=== PATIENT | male | born 1955 | race Caucasian/White ===

== ENCOUNTER 2018-06-08 10:46 | Inpatient (IN) | payer MEDICARE, OTHER ==
[~2018-06-08] VITALS: Ht 185.4 cm; Wt 93.0 kg
--- NOTE | ~2018-06-08 | CON ---
[facility] [address] [place] [address] CONSULTATION Name: KALYN SHAH Room: [address] IN M.R.#: [id number] Admission: 06/08/18 Attend Phys: Alberto Mcduffie MD Discharge: 06/13/18 Date of : 53 Report #: [id number] THIS REPORT FOR: //name// CC: Alberto Rodrigues DATE OF SERVICE: 06/09/2018 REFERRING PHYSICIAN: Alberto Mcduffie MD REASON FOR CONSULTATION: Abdominal pain and dysphagia. IMPRESSION: 1. Dysphagia with history of Rome's esophagus with his last examination being done over 5 years ago. 2. Iron deficiency anemia of uncertain etiology with the patient taking iron supplement chronically and craving ice. 3. Chronic constipation exacerbated by chronic narcotics. 4. Dilated intra and extrahepatic ducts with gallbladder in situ -- etiology and significance is unclear. 5. Chronic methadone and narcotic use. 6. Pneumonia versus mass. 7. Prostate cancer. 8. Anxiety and depression. RECOMMENDATIONS: 1. We will have the patient to have a low-residue diet in anticipation of doing colonoscopy in 2 days' time as the patient will need a 2-day prep. 2. We will proceed with upper endoscopy tomorrow and attempt colonoscopy on . 3. We will check labs to assess his continued need for iron replacement at this time. 4. We will continue the patient's home regimen of stimulant laxatives as he cannot afford high-priced laxatives such as Movantik, Linzess or Amitiza. 5. The patient will need eventually endoscopic ultrasound with Dr. Morris to evaluate his dilated intra and extrahepatic ducts. This needs to be done at [facility]. I have discussed the plans with the patient as well as and they are agreeable to the same. HISTORY OF PRESENT ILLNESS: The patient is a pleasant, but [id number] white male who presented to the Emergency Room yesterday with complaints of feeling as if food is getting stuck in his throat. He was having issues with swallowing and does have problem with chronic reflux. He is on medications for the same. He has not had any problem with [place] [address] CONSULTATION Name: KALYN SHAH Room: [address]#: [id number] Admission: 06/08/18 Attend Phys: Alberto Mcduffie MD Discharge: 06/13/18 Date of : 53 Report #: [id number] has had no nausea, vomiting, hematemesis or melena. He has tendency towards chronic constipation, for which he has tried a number of different laxatives and has a bowel regimen with the MiraLax and stool softeners that worked fairly well for him. He states he has undergone endoscopic studies of his upper GI tract within the last 5 years, but neither he nor his can remember what was done. He is admitted to the hospital for further evaluation and treatment. ALLERGIES: NONSTEROIDALS. He had previous GI BLEEDING related to same. MEDICATIONS: At home include Lupron, Casodex, albuterol, amlodipine, Qvar, fluoxetine, methadone, methocarbamol, Percocet, Florinef and esomeprazole. PAST MEDICAL AND SURGICAL HISTORY: Remarkable for metastatic prostate cancer, COPD, chronic pain syndrome, anxiety, depression. He had problems with chronic back pain with opioid dependence. He has had previous knee replacement, history of ulcer disease, prostatectomy and has history of orthostatic hypotension. SOCIAL HISTORY: The patient does not smoke or drink. FAMILY HISTORY: Negative. PHYSICAL EXAMINATION: GENERAL: Revealed ill-appearing 63-year-old gentleman who is awake and alert. CARDIOPULMONARY: Revealed diminished breath sounds. ABDOMEN: Soft and nondistended. No rebound or guarding. LABORATORY DATA TESTING: From admission revealed a white count 11.2; hemoglobin 10.4; platelet count of 256,000; MCV is 88.2 and RDW is 15.0. Urine drug screen is positive for opiates and methadone. Sodium 137, potassium 4.7, chloride 102, bicarbonate is 30, BUN 23 and creatinine 1.2. Total bilirubin 0.8, alkaline phosphatase is 70, AST 46, ALT 60. His albumin is 3.5. His INR is 1.0. CT scan of the abdomen and pelvis performed on 06/08/2018 revealed diffuse enlargement of the entire colon without evidence for obstruction. He has dilated intra and extrahepatic ducts all the way down to the papilla. There is no focal mass noted within the pancreas. DISCUSSION: At the present time, the patient has had problem with iron deficiency anemia, dysphagia, etc. We will proceed with upper endoscopy tomorrow and then bowel preparation over the next 2 days in anticipation of a colonoscopy in 2 [place] [address] CONSULTATION Name: KALYN SHAH J Room: [address] IN .R.#: [id number] Admission: 06/08/18 Attend Phys: Alberto Mcduffie MD Discharge: 06/13/18 Date of : 53 Report #: [id number] I have discussed the plans with the patient as well as and they are agreeable. By: [id number] Grey DO /rula
[~2018-06-08 10:46] MED LIST: AMITRIPTYLINE; DAZIDOX10 MG; ENDOCET; FENTANYL 1100 MCG/HR TP; FENTANYL PATCH75 MCG; FLORINEF ACETA0.1 MG PO; FLUOXETINE HCL20 M1 PO; KEFLEX500 MG PO; LOVENOX; METHADONE HCL 110 M1 PO; NEXIUM; NEXIUM40 MG PO; NORVASC5 MG PO; OPANA ER40 MG PO; PERCOCET 2.5-31 EACH PO; PROZAC; QVAR HFA 440 MCG/UN1 INH; QVAR8.7 G1 INH; ROBAXIN 750 MG750 M1 PO; VENTOLIN HFA 1818 GM INH; XANAX 0.25 MG0.25 MG PO; [UNRECOGNIZED DRUG - OTHER]
[2018-06-08 10:50] VITALS: BP 173/91
[2018-06-08] MEDS ORDERED: LUPRON DEPOT45 MG IM (10:58)
[2018-06-08] MEDS ORDERED: CASODEX 50 MG T50 MG PO (10:58)
[2018-06-08 11:22] LABS: HEMOGLOBIN 10.4 gm/dL (14.0-18.0); MCH 28.6 pg (26.0-34.0); MCHC 32.4 g/dL (28.0-37.0); MCV 88.2 fL (80.0-100.0); MPV 8.4 fl. (7.2-11.1); NUCLEATED RBCS 0 /100WBC; PLATELET COUNT* 256 thou/uL (150-400); RBC 3.63 mil/uL (4.50-6.00); WBC 11.2 thou/uL (4.0-11.0)
[2018-06-08 11:36] LABS: ANION GAP 5 mmol/L (7-16); BUN 23 mg/dL (7-18); CALCIUM 8.6 mg/dL (8.5-10.1); CHLORIDE 102 mmol/L (98-107); CO2 30 mmol/L (21-32); CREATININE 1.2 mg/dL (0.6-1.3); GLUCOSE 98 mg/dL (70-99); POTASSIUM 4.7 mmol/L (3.5-5.1); SODIUM 137 mmol/L (136-145)
[2018-06-08 11:40] LABS: ALBUMIN 3.5 g/dL (3.4-5.0); ALKALINE PHOSPHATASE 70 U/L (46-116); LIPASE 67 U/L (73-393); NT-PRO BRAIN NAT PEPTIDE 472 pg/mL (<300); SGOT 46 U/L (15-37); SGPT 60 U/L (30-65); TOTAL BILIRUBIN 0.3 mg/dL (<0.1-1.0); TOTAL PROTEIN 6.8 g/dL (6.4-8.2); TROPONIN-I LEVEL <0.06 ng/mL (<0.06)
[2018-06-08 11:47] LABS: APTT 28.5 Seconds (25.0-31.3); PROTIME 10.5 Seconds (9.20-11.50)
[2018-06-08 13:17] LABS: ABSOLUTE EOSINOPHILS 0.1 thou/uL (0.0-0.7); ABSOLUTE LYMPHOCYTES 0.7 thou/uL (0.8-5.3); ABSOLUTE MONOCYTES 0.6 thou/uL (0.0-1.2); ABSOLUTE NEUTROPHILS 9.9 thou/uL (1.6-8.1); PLATELET ESTIMATE ADEQUATE
[2018-06-08 14:41] LABS: URINE BILIRUBIN NEGATIVE (Negative); URINE BLOOD NEGATIVE (Negative); URINE CLARITY CLEAR; URINE COLOR YELLOW; URINE GLUCOSE-RANDOM NEGATIVE (Negative); URINE KETONES NEGATIVE (Negative); URINE LEUKOCYTES-REFLEX NEGATIVE (Negative); URINE NITRITE-REFLEX NEGATIVE (Negative); URINE PROTEIN NEGATIVE (Negative); URINE UROBILINOGEN 0.2 E.U./dl (0.2-1.0)
--- NOTE | 2018-06-08 14:41 | NUR ---
PER PT, "RADIOLOGY D/C PREVIOUS IV AND STARTED A NEW IV" IV WAS PLACED IN LEFT AC
[2018-06-08 14:49] LABS: AMP/METHAMP Negative (Negative); BARBITURATES Negative (Negative); BENZODIAZEPINES Negative (Negative); COCAINE Negative (Negative); METHADONE POSITIVE (Negative); OPIATES POSITIVE (Negative); PCP Negative (Negative); THC Negative (Negative)
[2018-06-08 15:22] VITALS: BP 181/131
--- NOTE | 2018-06-08 15:43 | EKG ---
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
[2018-06-08 16:00] VITALS: BP 179/79
--- NOTE | 2018-06-08 17:53 | NUR ---
ASSESSMENT COMPLETE. PT ADMITTED WITH ASPIRATION PNEUMONIA, OGILVIES SYNDROME, AND DILATED COM. PT ALERT AND ORIENTED X4, IMPULSIVE AND RESTLESS. PT IS FALL RISK, BED ALARM ON. PT EDUCATED ON FALL RISK, SOCKS AND ARMBAND ON. PT IS ON CLEAR LIQ DIET AT THIS TIME. TAKES MEDS WITHOUT DIFFICULTY. DENIES N/V. IV IN RIGHT FOREARM, SALINE LOCKED. PT IS ON ROOM AIR WITH ADEQUATE SATS. IV ZOSYN GIVEN ORDERED. GI CONSULTED. SEE ASSESSMENT AND VITALS FOR OTHER DETAILS. CALL LIGHT WITHIN REACH, WILL CONTINUE PLAN OF CARE
[2018-06-09] VITALS: BP 146/61
[2018-06-09 03:44] LABS: HEMATOCRIT 31.9 % (42.0-52.0); HEMOGLOBIN 10.5 gm/dL (14.0-18.0); MCHC 32.9 g/dL (28.0-37.0); MPV 8.4 fl. (7.2-11.1); RBC 3.63 mil/uL (4.50-6.00); RDW-CV 14.5 % (10.5-14.5); WBC 7.1 thou/uL (4.0-11.0)
--- NOTE | 2018-06-09 04:24 | NUR ---
PATIENT SLEPT WELL DURING THE NIGHT. PT UP WITH STANDBY TO BATHROOM. PT USES CALL LIGHT APPROPRIATELY TO MAKE HIS NEEDS KNOWN. LT IV INFILTRATED AND HAND IS SWOLLEN. IV REMOVED AND PT ENCOURAGED TO ELEVATE ON A PILLOW BUT REFUSED. NEW IV STARTED IN LT FOREARM. FLUIDS/ANTIBIOTICS INFUSING PER DR ORDER. FREQUENTLY USED ITEMS AND CALL LIGHT WITHIN REACH. SIDERAILS UPX2 AND BED ALARM ON. WILL CONTINUE TO MONITOR.
[2018-06-09 04:25] LABS: ALBUMIN 3.3 g/dL (3.4-5.0); CALCIUM 8.6 mg/dL (8.5-10.1); MAGNESIUM 3.3 mg/dL (1.8-2.4); POTASSIUM 5.5 mmol/L (3.5-5.1); TOTAL BILIRUBIN 0.3 mg/dL (<0.1-1.0); TOTAL PROTEIN 6.1 g/dL (6.4-8.2)
[2018-06-09 08:00] VITALS: BP 165/63
--- NOTE | 2018-06-09 13:55 | NUR ---
CM ASSESSMENT: VISITED WITH PT IN ROOM. PT STATES HE LIVES AT HOME WITH HIS . HAS NO DME NEEDS. NO HH NEEDS. CM WILL FOLLOW IF NEEDED
[2018-06-09 16:00] VITALS: BP 149/77
--- NOTE | 2018-06-09 16:22 | NUR ---
ALERT AND ORIENTED X4. UP STAND BY ASSIST IN ROOM. IV IS PATENT AND INFUSING. PAIN BEING MANAGED WITH PO PAIN MEDICATION. DENIES NAUSEA. TOLERATING DIET. VSS ON ROOM AIR. HOURLY ROUNDS HAVE BEEN MAINTAINED THROUGHOUT SHIFT. CALL LIGHT IS WITHIN REACH. NURSING WILL CONTINUE TO MONITOR.
[2018-06-09 21:53] VITALS: BP 190/109
[2018-06-10 04:50] LABS: ABSOLUTE EOSINOPHILS 0.3 thou/uL (0.0-0.7); ABSOLUTE MONOCYTES 0.5 thou/uL (0.0-1.2); ABSOLUTE NEUTROPHILS 5.5 thou/uL (1.6-8.1); BASOPHILS 0.5 %; EOSINOPHILS 4.5 %; HEMATOCRIT 32.2 % (42.0-52.0); HEMOGLOBIN 10.9 gm/dL (14.0-18.0); LYMPHOCYTES 13.7 %; MCH 29.6 pg (26.0-34.0); MCV 87.1 fL (80.0-100.0); MONOCYTES 6.6 %; MPV 8.9 fl. (7.2-11.1); NUCLEATED RBCS 0 /100WBC; PLATELET COUNT* 235 thou/uL (150-400); POLYS 74.7 %; RBC 3.69 mil/uL (4.50-6.00); RDW-CV 14.2 % (10.5-14.5); WBC 7.3 thou/uL (4.0-11.0)
[2018-06-10 04:57] LABS: ALBUMIN 3.2 g/dL (3.4-5.0); CALCIUM 8.3 mg/dL (8.5-10.1); POTASSIUM 4.6 mmol/L (3.5-5.1); TOTAL BILIRUBIN 0.3 mg/dL (<0.1-1.0); TOTAL PROTEIN 6.6 g/dL (6.4-8.2)
[2018-06-10 06:29] LABS: ESR (SEDRATE) 35 mm/hr (0-20)
[2018-06-10 08:02] VITALS: BP 186/92
[2018-06-10 08:23] VITALS: BP 168/90; BP 186/92
[2018-06-10 16:07] LABS: HEPATITIS B SURFACE AG Negative (Negative)
[2018-06-10 16:46] VITALS: BP 113/83
--- NOTE | 2018-06-10 18:23 | NUR ---
ASSESSMENT COMPLETE. PT ALERT AND ORIENTED X4. DENIES NEED FOR PRN PAIN MEDICATION. EGD THIS AM WENT WELL. PT CLEAR LIQUIDS FOR LUNCH AND DINNER. STARTED MIRALAX/DULCOLAX BOWEL PREP FOR COLONOSCOPY TOMORROW. CONSENTS SIGNED IN CHART. PT IS ON ROOM AIR WITH [place] SATS. HRR, PULSES 2/2, NO EDEMA NOTED. PT HAS IV SALINE LOCKED, ZOSYN CURRENTLY INFUSING. PT TAKES MEDICATIONS WITHOUT DIFFICULTY. PT IS FALL RISK, BED ALARM ON. UP STANDBY ASSIST. SEE ASSESSMENT AND VITALS FOR OTHER DETAILS. CALL LIGHT WITHIN REACH, WILL CONTINUE PLAN OF CARE
[2018-06-11 00:32] VITALS: BP 197/118
[2018-06-11 03:54] VITALS: BP 187/102
[2018-06-11 04:57] LABS: ABSOLUTE EOSINOPHILS 0.3 thou/uL (0.0-0.7); ABSOLUTE MONOCYTES 0.5 thou/uL (0.0-1.2); ABSOLUTE NEUTROPHILS 4.5 thou/uL (1.6-8.1); BASOPHILS 0.4 %; EOSINOPHILS 4.2 %; HEMATOCRIT 32.1 % (42.0-52.0); HEMOGLOBIN 10.7 gm/dL (14.0-18.0); LYMPHOCYTES 16.2 %; MCH 28.8 pg (26.0-34.0); MCHC 33.4 g/dL (28.0-37.0); MCV 86.1 fL (80.0-100.0); MONOCYTES 7.6 %; MPV 8.6 fl. (7.2-11.1); NUCLEATED RBCS 0 /100WBC; PLATELET COUNT* 270 thou/uL (150-400); POLYS 71.6 %; RBC 3.73 mil/uL (4.50-6.00); WBC 6.2 thou/uL (4.0-11.0)
[2018-06-11 05:00] LABS: CALCIUM 8.6 mg/dL (8.5-10.1); CREATININE 1.1 mg/dL (0.6-1.3); POTASSIUM 4.7 mmol/L (3.5-5.1)
--- NOTE | 2018-06-11 06:51 | NUR ---
PATIENT WAS AWAKE MOST OF THE NIGHT DUE TO BOWEL PREP. PT UP TO BSC. PT WITH GREENISH/CLEAR STOOL. PT WITH ANTIBIOTICS INFUSING PER DR ORDER. PT DENIES PAIN. FREQUENTLY USED ITEMS AND CALL LIGHT WITHIN REACH. WILL CONTINUE TO MONITOR.
[2018-06-11 08:40] VITALS: BP 141/93
[2018-06-11 09:23] VITALS: BP 165/88; BP 168/90
[2018-06-11 16:00] VITALS: BP 164/95
--- NOTE | 2018-06-11 17:09 | PATH ---
[address] [address] PATHOLOGY RPT PROCEDURE Name: KALYN ACEVES Room: [address] IN M.R.#: [id number] Admission: 06/08/18 Date of : 53 Discharge: Report #: [id number] Path Case #: [id number] [facility] Accession Number: [id number] . 01 Material submitted: . ESOPHAGEAL BIOPSY RULE OUT BARRETTS . 01 Clinical history: . None provided . 02 Diagnosis: Esophageal biopsy: - Benign esophageal and gastric/columnar types mucosa with moderate chronic and active inflammation compatible with reflux and with goblet cells typical of Rome's metaplasia, negative for granulomas and dysplasia. (ABDIAZIZ/db; 06/11/2018) LBQ/06/11/2018 . 02 Electronically signed: . Porter Gao MD, Pathologist NPI- [id number] . 01 Gross description: . Received in formalin labeled "Kalyn Aceves, esophageal BX, rule out Rome's," is a single segment of davidson soft tissue measuring 0.5 cm in maximum dimension. The specimen is entirely submitted in cassette A1. (TSD; 06/10/2018) TOB/TOB . 02 Pathologist provided ICD-10: K22.70 . 02 CPT . 834282 Specimen Comment: A courtesy copy of this report has been sent to Specimen Comment: [phone], , . Specimen Comment: Report sent to ,DR NAM / DR PAULINO Performed at: [address], [place], [place] [id number] MD Jh Alcala MD Phone: [phone] Performed at: [address] [facility] [address], [place], [place] [id number] MD Porter Gao MD Phone: [phone]
--- NOTE | 2018-06-11 17:58 | NUR ---
PATIENT IS ALERT AND ORIENTED TODAY. WENT FOR COLONOSCOPY BUT WAS UNABLE TO DO BECAUSE OF NOT BEING CLEAR ENOUGH. VITAL SIGNS HAVE BEEN STABLE ON ROOM AIR. SOME PAIN THAT IS CHRONIC THAT IS CONTROLLED WITH ORAL MEDICATIONS. CALL [facility] IS IN REACH, WILL CONTINUE TO MONITOR.
[2018-06-11 20:40] VITALS: BP 157/93
--- NOTE | 2018-06-12 05:21 | NUR ---
PT SLEPT MOST OF SHIFT. ASSESSMENT DOCUMENTED. MEDS GIVEN PER E-MAR. IV PATENT. PAIN MEDS GIVEN PER E-MAR WITH RELIEF. PT COMPLETED GOLYTELY DRINK. BISCODYL WILL BE GIVEN THIS SHIFT. STOOLS ARE LIQUID AND LIGHT GREEN WITH SEDIMENT. WILL CONTINUE WITH PLAN OF CARE.
[2018-06-12 08:30] VITALS: BP 180/92
--- NOTE | 2018-06-12 10:24 | NUR ---
PATIENT TAKEN FOR COLONOSCOPY, CONSENT SIGNED. PATIENT'S DOSE OF ZOSYN GIVEN TO TEACHER MUSIC TO ADMINISTER IN PACU. ACCOMPANIED PATIENT.
[2018-06-12 15:52] VITALS: BP 140/78
--- NOTE | 2018-06-12 17:52 | NUR ---
PATIENT HAS BEEN A/O X 4 THIS SHIFT. PATIENT TAKEN FOR COLONOSCOPY THIS MORNING. CONTINUES ON SCHEDULED METHADONE. TO START ON MIRALAX THIS EVENING. UP AD TAMMY IN ROOM. NICHOL LEVINE'D, TO START ON ORAL ANTIBIOTICS. POSSIBLE DC IN AM. FAMILY AT BEDSIDE. HOURLY ROUNDING COMPLETED. CALL LIGHT WITHIN REACH. WILL CONTINUE WITH PLAN OF CARE.
[2018-06-12 20:20] VITALS: BP 143/81
[2018-06-13 00:13] VITALS: BP 154/87
[2018-06-13 05:00] LABS: ABSOLUTE EOSINOPHILS 0.2 thou/uL (0.0-0.7); ABSOLUTE LYMPHOCYTES 1.4 thou/uL (0.8-5.3); ABSOLUTE MONOCYTES 0.5 thou/uL (0.0-1.2); ABSOLUTE NEUTROPHILS 6.3 thou/uL (1.6-8.1); BASOPHILS 0.3 %; EOSINOPHILS 2.7 %; HEMOGLOBIN 11.7 gm/dL (14.0-18.0); LYMPHOCYTES 16.4 %; MCHC 33.6 g/dL (28.0-37.0); MCV 86.5 fL (80.0-100.0); MONOCYTES 5.6 %; MPV 8.8 fl. (7.2-11.1); NUCLEATED RBCS 0 /100WBC; PLATELET COUNT* 267 thou/uL (150-400); RBC 4.04 mil/uL (4.50-6.00); RDW-CV 13.9 % (10.5-14.5); WBC 8.4 thou/uL (4.0-11.0)
[2018-06-13 05:47] LABS: CALCIUM 8.5 mg/dL (8.5-10.1); CREATININE 0.8 mg/dL (0.6-1.3); POTASSIUM 4.9 mmol/L (3.5-5.1)
--- NOTE | 2018-06-13 05:47 | NUR ---
PT SLEPT MOST OF SHIFT. ASSESSMENT DOCUMENTED. MEDS GIVEN PER E-MAR. IV PATENT. PAIN MEDS GIVEN PER E-MAR WITH RELIEF. PT TOLERATING DIET. WILL CONTINUE WITH PLAN OF CARE.
[2018-06-13 07:50] VITALS: BP 130/58
[2018-06-13] MEDS ORDERED: AUGMENTIN 875-1 EACH PO ×2 (09:22→12:50)
[2018-06-13] MEDS ORDERED: UNICOMPLEX M TA1 TA1 PO (12:51)
[2018-06-13] MEDS ORDERED: MIRALAX17 GM PO (12:58)
[2018-06-13 13:59] VITALS: BP 130/58
--- NOTE | 2018-06-13 15:00 | NUR ---
ASSESSMENT COMPLETE. PT ALERT AND ORIENTED X4. PT STARTED ON PO ABX. DENIES PAIN AND N/V. PT DISCHARGED TO HOME. PRESCRIPTIONS GIVEN AND PAPERWORK SIGNED. PT VERBALIZES UNDERSTANDING OF DISCHARGE INSTRUCTIONS. IV DISCHARGED WITHOUT DIFFICULTIES. PT LEFT VIA WHEELCHAIR WITH SPOUSE AT 1430.
[2018-06-13 15:02] VITALS: BP 130/58
== END 2018-06-13 14:30 | disposition home or self-care (01) | DRG 871 ==
LOC: M.ERS 10:46 → M.TBA-ER 14:25 → M.3W 14:25
PROVIDERS: Family Medicine; Internal Medicine Gastroenterology; Nurse Practitioner Family; ADMIT Internal Medicine
PROC: 0DB98ZX Excision of Duodenum, Via Natural or Artificial Opening Endoscopic, Diagnostic (ICD-10-PCS; principal; 2018-06-10)
PROC: 0D748ZZ Dilation of Esophagogastric Junction, Via Natural or Artificial Opening Endoscopic (ICD-10-PCS; principal; 2018-06-10)
PROC: 0W3P8ZZ Control Bleeding in Gastrointestinal Tract, Via Natural or Artificial Opening Endoscopic (ICD-10-PCS; principal; 2018-06-10)
PROC: 0DJD8ZZ Inspection of Lower Intestinal Tract, Via Natural or Artificial Opening Endoscopic (ICD-10-PCS; 2018-06-11)
DX: A41.9 Sepsis, unspecified organism (principal); J69.0 Pneumonitis due to inhalation of food and vomit; G92 Toxic encephalopathy; K25.4 Chronic or unspecified gastric ulcer with hemorrhage; K26.4 Chronic or unspecified duodenal ulcer with hemorrhage; J45.901 Unspecified asthma with (acute) exacerbation; K56.699 Other intestinal obstruction unspecified as to partial versus complete obstruction; F11.20 Opioid dependence, uncomplicated; K44.9 Diaphragmatic hernia without obstruction or gangrene; G89.29 Other chronic pain; D50.9 Iron deficiency anemia, unspecified; K57.30 Diverticulosis of large intestine without perforation or abscess without bleeding; K64.8 Other hemorrhoids; F32.9 Major depressive disorder, single episode, unspecified; F41.1 Generalized anxiety disorder; K83.8 Other specified diseases of biliary tract; K59.03 Drug induced constipation; T40.605A Adverse effect of unspecified narcotics, initial encounter; Z87.81 Personal history of (healed) traumatic fracture; Y92.89 Other specified places as the place of occurrence of the external cause; Z92.21 Personal history of antineoplastic chemotherapy; Z85.46 Personal history of malignant neoplasm of prostate; Z86.73 Personal history of transient ischemic attack (TIA), and cerebral infarction without residual deficits; Z87.11 Personal history of peptic ulcer disease; Z85.51 Personal history of malignant neoplasm of bladder; Z90.79 Acquired absence of other genital organ(s); Z79.51 Long term (current) use of inhaled steroids; Z79.899 Other long term (current) drug therapy; Z88.8 Allergy status to other drugs, medicaments and biological substances; K20.8 Other esophagitis; K22.8 Other specified diseases of esophagus

== ENCOUNTER 2018-06-30 05:15 | Inpatient (IN) | payer MEDICARE, OTHER ==
[~2018-06-30] VITALS: Ht 185.4 cm; Wt 83.9 kg
[~2018-06-30 05:15] MED LIST changes: +AUGMENTIN 875-1 EACH PO; +CASODEX 50 MG T50 MG PO; +LUPRON DEPOT45 MG IM; +MIRALAX17 GM PO; +PERCOCET 10-321 EAC1 PO; -PERCOCET 2.5-31 EACH PO; +QVAR REDIHALE10.6 G1 INH; -QVAR8.7 G1 INH; +UNICOMPLEX M TA1 TA1 PO
[2018-06-30 05:16] VITALS: BP 171/91
[2018-06-30 05:48] LABS: ABSOLUTE EOSINOPHILS 0.3 thou/uL (0.0-0.7); ABSOLUTE LYMPHOCYTES 1.1 thou/uL (0.8-5.3); ABSOLUTE MONOCYTES 0.6 thou/uL (0.0-1.2); ABSOLUTE NEUTROPHILS 4.9 thou/uL (1.6-8.1); BASOPHILS 0.6 %; HEMATOCRIT 31.2 % (42.0-52.0); HEMOGLOBIN 10.4 gm/dL (14.0-18.0); LYMPHOCYTES 16.2 %; MCH 28.7 pg (26.0-34.0); MCHC 33.4 g/dL (28.0-37.0); MCV 85.9 fL (80.0-100.0); MONOCYTES 8.1 %; MPV 8.4 fl. (7.2-11.1); NUCLEATED RBCS 0 /100WBC; PLATELET COUNT* 281 thou/uL (150-400); POLYS 71.1 %; RBC 3.63 mil/uL (4.50-6.00); RDW-CV 14.2 % (10.5-14.5); WBC 6.9 thou/uL (4.0-11.0)
[2018-06-30 05:53] LABS: ANION GAP 6 mmol/L (7-16); BUN 20 mg/dL (7-18); CHLORIDE 106 mmol/L (98-107); CO2 28 mmol/L (21-32); CREATININE 1.2 mg/dL (0.6-1.3); GLUCOSE 115 mg/dL (70-99); POTASSIUM 4.2 mmol/L (3.5-5.1); SODIUM 140 mmol/L (136-145)
[2018-06-30 05:57] LABS: PROTIME 10.1 Seconds (9.20-11.50)
--- NOTE | 2018-06-30 06:01 | NUR ---
PATIENT BECAME AGITATED AND COMBATIVE AFTER NARCAL WAS ADMINISTERED. PATIENT RETURNED TO ED. DR MITCHELL IS AT BEDSIDE AND HAS ORDERD ATIVAN AND FENTANYL FOR PATIENT.
[2018-06-30 06:04] LABS: ALBUMIN 3.1 g/dL (3.4-5.0); ALKALINE PHOSPHATASE 61 U/L (46-116); LIPASE 81 U/L (73-393); NT-PRO BRAIN NAT PEPTIDE 401 pg/mL (<300); SGOT 33 U/L (15-37); SGPT 36 U/L (30-65); TOTAL BILIRUBIN 0.1 mg/dL (<0.1-1.0); TROPONIN-I LEVEL <0.06 ng/mL (<0.06)
--- NOTE | 2018-06-30 07:01 | NUR ---
ASSUMMED CARE OF PATIENT
[2018-06-30 07:49] LABS: URINE BILIRUBIN NEGATIVE (Negative); URINE BLOOD NEGATIVE (Negative); URINE CLARITY CLEAR; URINE COLOR YELLOW; URINE GLUCOSE-RANDOM NEGATIVE (Negative); URINE KETONES NEGATIVE (Negative); URINE LEUKOCYTES-REFLEX NEGATIVE (Negative); URINE NITRITE-REFLEX NEGATIVE (Negative); URINE PROTEIN NEGATIVE (Negative); URINE UROBILINOGEN 0.2 E.U./dl (0.2-1.0)
[2018-06-30 09:56] LABS: AMP/METHAMP Negative (Negative); BARBITURATES Negative (Negative); BENZODIAZEPINES Negative (Negative); COCAINE Negative (Negative); METHADONE POSITIVE (Negative); OPIATES Negative (Negative); PCP Negative (Negative); THC Negative (Negative)
[2018-06-30 13:55] VITALS: BP 135/106
[2018-06-30 14:10] VITALS: BP 212/118
--- NOTE | 2018-06-30 15:17 | NUR ---
RECEIVED PT FROM ED 1410. HE IS ASLEEP BUT EASY TO ARROUSE. WAKES UP AND MOVES ALL EXTREMITIES AIMLESSLY. INCONTINENT OF URINE. IVF INFUSING. ADMISSION ASSESSMENT AND HISTORY COMPLETED FROM PATIENTS PREVIOUS ADMISSION THE BEGINNING OF THIS MONTH. IVF INFUSING. HIS BELONGINGS AT BEDSIDE INCLUDE: WATCH, GLASSES, AND CELL PHONE. BED ALARM ON. CALL LIGHT WITHIN REACH. WILL CONTINUE TO MONITOR.
[2018-06-30 16:00] VITALS: BP 178/109
[2018-06-30 16:50] VITALS: BP 168/92
--- NOTE | 2018-06-30 19:00 | NUR ---
PATIENT PROGRESSING TOWARDS GOALS. MORE AWAKE THIS AFTERNOON. ALERT ENOUGH TO SWALLOW MEDICATIONS AND ANSWER ORIENTATION QUESTIONS. INCONTINENT OF URINE X2 THIS SHIFT. REPOSITIONED FOR COMFORT. BED ALARM ON. HOURLY ROUNDING CHARTED. WILL CONTINUE TO MONITOR.
[2018-06-30 19:50] VITALS: BP 178/98
[2018-07-01 00:03] VITALS: BP 163/93
--- NOTE | 2018-07-01 03:11 | NUR ---
RECIEVED REPORT AND ASSUMED CARE AT 1900. PT WAS VERY SLEEPY AND DID NOT TALK TO ME OR ANSWER MY QUESTIONS AT THE BEGINING OF MY SHIFT AND NOW PT APPEARS TO BE MORE AWAKE AND KNOWS WHO HE IS AND THAT HE IS IN THE HOSPITAL BUT DOESN'T KNOW WHY HE IS IN THE HOSPITAL. PT UP WITH ASSIST X 1 TO 2. PT DOESN'T APPEAR TO BE IN PAIN AT THIS TIME. ASSESSMENT COMPLETED. BED LOCKED, ALARM ON AND CALL LIGHT WITHIN REACH. FALL PRECAUTIONS IN PLACE. HOURLY ROUNDING COMPLETED AND ALL NEEDS MET. NURSING WILL CONTINUE TO MONITOR.
[2018-07-01 04:36] VITALS: BP 147/85
[2018-07-01 05:55] LABS: CALCIUM 8.9 mg/dL (8.5-10.1); CREATININE 0.9 mg/dL (0.6-1.3); POTASSIUM 3.8 mmol/L (3.5-5.1)
[2018-07-01 06:02] LABS: ABSOLUTE EOSINOPHILS 0.1 thou/uL (0.0-0.7); ABSOLUTE LYMPHOCYTES 0.8 thou/uL (0.8-5.3); ABSOLUTE MONOCYTES 0.4 thou/uL (0.0-1.2); ABSOLUTE NEUTROPHILS 5.2 thou/uL (1.6-8.1); BASOPHILS 0.7 %; EOSINOPHILS 1.4 %; HEMATOCRIT 36.8 % (42.0-52.0); LYMPHOCYTES 12.1 %; MCH 27.9 pg (26.0-34.0); MCHC 32.6 g/dL (28.0-37.0); MCV 85.8 fL (80.0-100.0); MONOCYTES 5.5 %; NUCLEATED RBCS 0 /100WBC; PLATELET COUNT* 301 thou/uL (150-400); POLYS 80.3 %; RBC 4.29 mil/uL (4.50-6.00); RDW-CV 14.1 % (10.5-14.5); WBC 6.4 thou/uL (4.0-11.0)
[2018-07-01 08:00] VITALS: BP 184/118
--- NOTE | 2018-07-01 11:22 | EKG ---
[place] [address] ELECTROCARDIOGRAM REPORT Name: KALYN SHAH Room: [address] ADM IN M.R.#: [id number] Admission: 06/30/18 Attend Phys: Dandy Goodrich MD Discharge: Date of : 53 Report #: [id number] THIS REPORT FOR: //name// [facility] ED Test Date: 2018-06-30 Test Time: 05:27:19 Pat Name: KALYN SHAH Department: Room: [facility] Gender: Psychiatric Aides Teacher: Cortez STORY : 1955 Requested By: Tiffanie Torres Order Number: [id number] MD: Kalyn West Measurements Intervals [place] Rate: 60 P: 50 OK: 184 QRS: 1 QRSD: 119 T: 30 QT: 462 QTc: 462 Interpretive Statements Sinus rhythm Compared to ECG 06/08/2018 11:20:45 no change Electronically Signed On 07-01-2018 11:22:32 DESKIDDING MACHINE OPERATOR by Kalyn West [email or web address] <ELECTRONICALLY SIGNED> By: Kalyn West MD, [facility] 07/01/18 1122 6 6 Kalyn West MD, [facility] /EPI
[2018-07-01 12:12] VITALS: BP 161/88
--- NOTE | 2018-07-01 14:59 | NUR ---
Cm spoke with Pt's via phone. Pt admitted with AMS, has sitter in room. Pt was just hospialized here in early June, was A&O. Per , Pt had been doing ok at home. admits that Pt has had increased confusion. completes majority of ADLs, Pt does still drive sometimes. Pt has a cane that he can use as needed. No hx of HH or SNF. is hopeful that Pt is able to [facility].
--- NOTE | 2018-07-01 16:30 | NUR ---
ASSUMED CARE OF PATIENT THIS AM AT 0730. PATIENT IS ALERT, ORIENTED TO PLACE AND NAME. PATIENT REORIENTED TO DATE AND SITUATION. PATIENT IS ANXIOUS, WITH CONSTANT MOVEMENT. PATIENT MEDICATED WITH IV ATIVAN THIS AM AND APPEARED TO BECOME MORE AGITATED. DR SNYDER NOTIFIED. NO CHANGES IN ANXIETY MEDICATIONS AT THIS TIME. PATIENT GIVEN PO PAIN MEDICATION AND METHADONE CONTINUED. PATIENT ON A 1:1 OBSERVATION FOR PATIENT SAFETY DUE TO PATIENT'S ANXIETY. NO FALLS OR INJURY. EEG ATTEMPTED TODAY. PATIENT WAS INCAPABLE OF LYING STILL FOR THE PROCEDURE. PLANS TO REATTEMPT TOMMORROW. IV ANTIBIOTICS STARTED PER ORDER. PATIENT ASSISTED WITH MEALS AND ADLS THROUGHOUT THE DAY. HE REMAINS RESTLESS AT THIS TIME. TELE SHOWS SR TO ST. WILL CONTINUE TO MONITOR.
[2018-07-01 19:30] VITALS: BP 167/92
[2018-07-02] VITALS: BP 181/99
[2018-07-02 04:00] VITALS: BP 185/108
--- NOTE | 2018-07-02 06:21 | NUR ---
VITALS WNL. SEE MAR. SEE CHARTING. FALL PRECAUTIONS IN PLACE. HOURLY ROUNDING FOR SAFETY.
[2018-07-02 07:30] VITALS: BP 185/105
[2018-07-02 09:52] LABS: HEMATOCRIT 40.5 % (42.0-52.0); HEMOGLOBIN 13.3 gm/dL (14.0-18.0); MCH 27.7 pg (26.0-34.0); MCHC 32.7 g/dL (28.0-37.0); MCV 84.8 fL (80.0-100.0); MPV 8.5 fl. (7.2-11.1); NUCLEATED RBCS 0 /100WBC; RBC 4.78 mil/uL (4.50-6.00); RDW-CV 14.1 % (10.5-14.5); WBC 12.4 thou/uL (4.0-11.0)
[2018-07-02 10:02] LABS: PLATELET COUNT* 407 thou/uL (150-400)
[2018-07-02 10:26] LABS: ALBUMIN 3.8 g/dL (3.4-5.0); CALCIUM 9.2 mg/dL (8.5-10.1); CREATININE 0.9 mg/dL (0.6-1.3); POTASSIUM 3.3 mmol/L (3.5-5.1); TOTAL BILIRUBIN 0.5 mg/dL (<0.1-1.0); TOTAL PROTEIN 7.5 g/dL (6.4-8.2)
[2018-07-02 10:48] LABS: ABSOLUTE EOSINOPHILS 0.2 thou/uL (0.0-0.7); ABSOLUTE LYMPHOCYTES 1.5 thou/uL (0.8-5.3); ABSOLUTE MONOCYTES 0.2 thou/uL (0.0-1.2); ABSOLUTE NEUTROPHILS 10.4 thou/uL (1.6-8.1)
[2018-07-02 10:49] LABS: PLATELET ESTIMATE INCREASED
[2018-07-02 11:54] VITALS: BP 162/101
[2018-07-02 16:00] VITALS: BP 183/120
[2018-07-02 19:40] VITALS: BP 133/63
[2018-07-03] VITALS (7 sets, daily range): BP systolic 154–186; BP diastolic 83–107
[2018-07-03 05:15] LABS: ABSOLUTE EOSINOPHILS 0.1 thou/uL (0.0-0.7); ABSOLUTE MONOCYTES 0.9 thou/uL (0.0-1.2); ABSOLUTE NEUTROPHILS 7.2 thou/uL (1.6-8.1); BASOPHILS 0.5 %; EOSINOPHILS 0.6 %; HEMATOCRIT 36.8 % (42.0-52.0); HEMOGLOBIN 12.4 gm/dL (14.0-18.0); LYMPHOCYTES 10.8 %; MCH 28.5 pg (26.0-34.0); MCHC 33.5 g/dL (28.0-37.0); MCV 84.8 fL (80.0-100.0); MONOCYTES 9.8 %; MPV 8.3 fl. (7.2-11.1); NUCLEATED RBCS 0 /100WBC; POLYS 78.3 %; RBC 4.34 mil/uL (4.50-6.00); WBC 9.3 thou/uL (4.0-11.0)
[2018-07-03 05:33] LABS: CALCIUM 8.8 mg/dL (8.5-10.1); CREATININE 0.9 mg/dL (0.6-1.3); POTASSIUM 3.5 mmol/L (3.5-5.1)
[2018-07-03 06:32] LABS: PLATELET COUNT* 295 thou/uL (150-400)
--- NOTE | 2018-07-03 06:39 | NUR ---
VITALS WNL. SEE MAR. SEE CHARTING. FALL PRECAUTIONS IN PLACE. HOURLY ROUNDING FOR SAFETY.
--- NOTE | 2018-07-03 15:10 | NUR ---
RECEIVED PT CARE 0700. HE IS AWAKE/ALERT, ORIENTED X1 TO PERSON. HE IS ABLE TO TELL ME HIS NAME AND BIRTHDAY. VSS. DIAMOND SETTER TRACING SR-ST. HEART RATE 90'S TO LOW 100S. UP STANDBY ASSIST IN HIS ROOM WITH BATHROOM PRIVILEDGES. GAIT IS STEADY. AMBULATORY IN HALLWAY THIS AM WITH ASSISTANCE FROM NURSING STAFF. AM ASSESSMENT CHARTED. MEDS GIVEN PER MAR. REPOSITIONS SELF IN BED FREQUENTLY. SITTER AT BEDSIDE FOR CONFUSION. WILL CONTINUE TO MONITOR.
[2018-07-03] MEDS ORDERED: MUSCLE RUB CRE113 G1 TOP (19:02)
[2018-07-03] MEDS ORDERED: CARISOPRODOL 3350 MG PO (19:03)
[2018-07-04 00:45] VITALS: BP 184/103
[2018-07-04 01:13] VITALS: BP 165/81
--- NOTE | 2018-07-04 02:58 | NUR ---
ASSUMED PT CARE @ 1930. PT HAS BEEN RESTLESS TRHOUGHOUT SHIFT. 1:1 SITTER AT ALL TIMES FOR SAFETY. TOOL PT FOR MULTIPLE WALKS AROUND UNIT. EFFECTIVE FOR A SHORT WHILE. ATIVAN PRN MINIMALLY EFFECTIVE. PT RESTLESS IN BED. DOING LEG LIFTS, STRETCHES, FREQUENTLY TRYING TO GET OUT OF BED.PT C/O BEING HOT. TURNED DOWN TEMPATURE AND GAVE PT A FAN. PT WILL RANDOMLY SAY "PLEASE" BUT UNABLE TO VERBALIZE WHAT HE NEEDS. SITTER AND CALL LIGHT AT BEDSIDE FOR SAFETY. WILL CONTINUE TO MONITOR,
[2018-07-04 08:00] VITALS: BP 191/106
--- NOTE | 2018-07-04 08:20 | NUR ---
PT REMAINED RESTLESS THROUGH SHIFT. PT VOMITED AFTER TAKING HIS 0600 METHADONE PILL. AND CONTINUED TO DRY HEAVE FOR SEVERAL MINUTES. ZOFRAN GIVEN. DR NAM NOTIFIED. ORDER TO REGIVE METHADONE AND MORPHINE 2MG IV X 1. PT WAS ALSO GIVEN IV HYDRALAZINE FOR BP. PT WAS FINALLY ABLE TO RELAX AND FALL ASLEEP FOR THE FIRST TIME THIS SHIFT.
[2018-07-04 16:00] VITALS: BP 150/64
[2018-07-04 16:01] VITALS: BP 155/71
--- NOTE | 2018-07-04 17:35 | NUR ---
PATINET RESTING IN BED. VITAL SIGNS STABLE AND PATIENT RESTING COMFORTABLY. PATIENT AOX2, CONFUDED, AND IMPULSIVE. 1:1 SITTER AT BEDSIDE FOR PATINET SAFETY. TELE PSYCH CONSULT COMPLETED WITH RECOMMENDATIONS PLACED IN CHART AND RELAYED TO HOSPITALIST. HOURLY ROUNDING COMPLETD FOR PATIENT SAFETY.
[2018-07-04 20:00] VITALS: BP 169/84
[2018-07-05] VITALS (7 sets, daily range): BP systolic 136–192; BP diastolic 78–112
[2018-07-05 05:23] LABS: ABSOLUTE EOSINOPHILS 0.1 thou/uL (0.0-0.7); ABSOLUTE LYMPHOCYTES 1.2 thou/uL (0.8-5.3); ABSOLUTE MONOCYTES 0.9 thou/uL (0.0-1.2); ABSOLUTE NEUTROPHILS 7.8 thou/uL (1.6-8.1); BASOPHILS 0.4 %; EOSINOPHILS 0.9 %; HEMATOCRIT 37.1 % (42.0-52.0); HEMOGLOBIN 12.5 gm/dL (14.0-18.0); LYMPHOCYTES 11.6 %; MCH 28.6 pg (26.0-34.0); MCHC 33.7 g/dL (28.0-37.0); MCV 84.7 fL (80.0-100.0); MONOCYTES 8.9 %; NUCLEATED RBCS 0 /100WBC; PLATELET COUNT* 335 thou/uL (150-400); POLYS 78.2 %; RBC 4.38 mil/uL (4.50-6.00); WBC 9.9 thou/uL (4.0-11.0)
--- NOTE | 2018-07-05 05:30 | NUR ---
ASSUMED CARE OF PT AFTER REPORT AT 1930. PT A&OX3. NOTM ORIENTED TO TIME. FORGETFUL & IMPULSIVE. PT ON 1:1 SITTER. PT ON RA WITH 100% O2 SAT. PT TRACING SR ON TELE. PT UP WITH 1 ASSIST. PT C/O OF LEFT FOREARM PAIN WITH PAIN SCALE OF 3/10-PAIN MEDS PER MAR. HOURLY ROUNDING OBSERVED. HS REST & SAFETY GOALS ACHIEVED. CALL LIGHT WITHIN REACH.
[2018-07-05 06:08] LABS: ALBUMIN 3.7 g/dL (3.4-5.0); CALCIUM 9.3 mg/dL (8.5-10.1); CREATININE 0.8 mg/dL (0.6-1.3); POTASSIUM 3.8 mmol/L (3.5-5.1); TOTAL BILIRUBIN 0.2 mg/dL (<0.1-1.0); TOTAL PROTEIN 6.9 g/dL (6.4-8.2)
--- NOTE | 2018-07-05 15:47 | NUR ---
PATIET RESTING IN BED. UP WITH STANDBY ASSIST AND 1:1 SITTER FOR CONFUSION. PATINETS ORIENTATION HAS IMPROVED TODAY AND HE IS CURRENTLY AOX3 BUT VERY IMPULSIVE. ANTICIPATION OF DISCHARGE TO HOME WITH SPOUSE TOMORROW. HOURLY ROUNDING COMPLETED FOR PATIENT SAFETY AND PATIENT IS PROGRESSING TOWARDS GOALS. VITAL SIGNS STABLE.
[2018-07-06] VITALS: BP 176/91
[2018-07-06 04:00] VITALS: BP 170/105
--- NOTE | 2018-07-06 04:18 | NUR ---
ASSUMED CARE OF PT AFTER REPORT AT 1930. PT A&OX3-4. FORGETFUL & IMPULSIVE. VSS. PHSYICAL ASSESSMENT COMPLETED AND CHARTED. PT ON RA WITH 97% O2 SAT. PT TRACING SR/ST ON TELE. PT UP STANDBY. DENIES ANY PAIN OR DISCOMFORT. PT ON 1:1 SITTER. HOURLY ROUNDING OBSERVED. BED IN LOW POSITION.
[2018-07-06 08:00] VITALS: BP 168/104
[2018-07-06] MEDS ORDERED: CATAPRESS3 TRANSDERM (09:56)
[2018-07-06 10:00] VITALS: BP 168/104
[2018-07-06] MEDS ORDERED: LISINOPRIL20 MG PO (10:00)
[2018-07-06] MEDS ORDERED: ZANAFLEX4 MG PO (10:06)
[2018-07-06] MEDS ORDERED: AUGMENTIN 875-1 EACH PO (10:14)
[2018-07-06 10:15] VITALS: BP 168/104
[2018-07-06 10:17] VITALS: BP 168/104
--- NOTE | 2018-07-06 11:24 | NUR ---
ASSUMED PT CARE AT 0730 REPORT RECEIVED FROM NURSE. PT IS AOX4 SR ON CLAIM EXAMINER. SITTING IN BED . ATE BREAKFAST READY TO GO HOME. MORNING MEDICATIONS GIVEN. ON RA AND SATURATION IS ABOVE 95% ON RA. IV LINE TAKEN OUT. TELE MONITOR OUT. DC ORDER IN CHART . SCRIPT GIVEN TO PT. DISCHARGE ORDERS GIVEN WITH SPOUSE AT BEDSIDE. PT STATED UNDERSTANDING. PT SAYS HE DID NOT BRING ANY MEDICATION TO THE HOSPITAL. PICTURE OF FOOT CALLUS AND OF LEFT FOREARM SCAR TAKEN. PT LEFT FLOOR AT 11:02 ACCOMPANIED BY NURSING STAFF AND .
--- NOTE | 2018-07-09 09:40 | CON ---
[address] [address] CONSULTATION Name: KALYN SHAH Room: [address] IN M.R.#: [id number] Admission: 06/30/18 Attend Phys: Dandy Goodrich MD Discharge: 07/06/18 Date of : 53 Report #: [id number] THIS REPORT FOR: //name// CC: Dandy Goodrich [facility] physician/PCP DATE OF SERVICE: 07/01/2018 HISTORY OF PRESENT ILLNESS: This is a 63-year-old male patient who was evaluated by me for altered mental status. This patient is pretty impulsive and is not even oriented. So, his history is poor. I talked to Dr. Goodrich, the admitting physician and reviewed the patient's records in the computer. It looks like this patient came with altered mental status. He was given Narcan, he became better, but then he became impulsive and then he required Ativan. I called the patient's and talked to her and she indicated that the patient is not always justin with her. She indicates that he takes pain medications including methadone and oxycodone. She cannot tell me whether he took more than what he was supposed to take. When I asked her whether his memory is becoming bad, she indicates it is, but I could not get a good idea how much bad his memory has been. She was not a good historian and I could not get a good history on her. I reviewed the patient's record. It looks like he has a history of asthma, chronic back pain with opiate dependence, knee replacement, stomach ulcer, peptic ulcer disease, prostatectomy, orthostatic hypotension, adrenal insufficiency, prostatic carcinoma. I carried out the 14-point review of systems and this is the best I can carry out. PAST MEDICAL HISTORY: Positive for back pain with the patient being opiate dependent. FAMILY HISTORY: Negative for any early age stroke. SOCIAL HISTORY: is pretty adamant that he does not drink any alcohol. PHYSICAL EXAMINATION: Indicate that he is alert. He is responsive. He does not know what month it is. He appeared to be impulsive. His exam is difficult. He is not oriented. His memory is poor. His cranial nerve examination 2-12 was attempted. It looks like there is no focality there. He moves all 4 extremities and it looks symmetrical. I tried to do the position sense. He did not understand the instructions. His reflexes are symmetrical. His tone is symmetrical. He did not cooperate with cerebellar or fundus examination. His pulses are difficult to feel. He has no edema, cyanosis or jaundice. His cardiac examination is Noncontributory. He does not appear to be in much respiratory difficulty. He does appear to have some rhonchi. Blood pressure is 184/118, respirations 17, pulse is 89, temperature is 98.4. His blood pressure [place] [address] CONSULTATION Name: KALYN SHAH Room: [address]#: [id number] Admission: 06/30/18 Attend Phys: Dandy Goodrich MD Discharge: 07/06/18 Date of : 53 Report #: [id number] LABORATORY DATA: Indicate white count of 6.4. His sodium is 141. He did have a CT scan of the head on admission that does not show any acute changes. IMPRESSION: It is difficult to tell in this patient it appeared to be delirium. We would like to do an MRI on him, but I do not know whether there is any contraindication in his back and he is not going to cooperate. It might be all drug related or some hypoxemia he may have suffered if he took overdose. I do not think there is any ORDER PLANNER infection. I cannot fully exclude that. RECOMMENDATIONS: 1. We will try to get an EEG. 2. If he stabilizes, we will try to get an MRI. 3. Main management is going to be the management of systemic problems. Thank you very much for this referral and follow the patient along with you. <ELECTRONICALLY SIGNED> By: Hood Molina MD 07/09/18 0940 1141 1938Hood Molina MD /nt
--- NOTE | 2018-07-09 09:40 | EEG ---
[address] [address] EEG STUDY REPORT Name: KALYN SHAH Room: [address] IN M.R.#: [id number] Admission: 06/30/18 Attend Phys: Dandy Goodrich MD Discharge: 07/06/18 Date of : 53 Report #: [id number] THIS REPORT FOR: //name// CC: Dandy Goodrich [facility] physician/PCP DATE OF SERVICE: 07/01/2018 This patient is being evaluated for altered mental status. EEG was attempted. The patient is extremely uncooperative. A lot of artifact is present. Background activity does appear to be about 7 Hz and 30 microvolt. The patient did not cooperate. Photic stimulation is unremarkable. IMPRESSION: It is not possible to form any impression on this patient's EEG because the patient did not cooperate. The patient does not appear to be in status epilepticus and may have encephalopathy. However, it is not possible to further evaluate this patient because of his poor cooperation. <ELECTRONICALLY SIGNED> By: Hood Molina MD 07/09/18 0940 1600 [id number] Molina MD /nt
--- NOTE | 2018-07-09 09:40 | EEG ---
[address] [address] EEG STUDY REPORT Name: KALYN SHAH Room: [address] IN M.R.#: [id number] Admission: 06/30/18 Attend Phys: Dandy Goodrich MD Discharge: 07/06/18 Date of : 53 Report #: [id number] THIS REPORT FOR: //name// CC: Dandy Goodrich [facility] physician/PCP DATE OF SERVICE: 07/02/2018 This patient is having an altered mental status. EEG was done by placing the electrodes by standard 10-20 system of electrode placement. Both referential and sequential montages were used for recording. Background activity in this patient's EEG is about 7 Hz and 30 microvolt. It is a symmetrical activity. It may be a trace better than the last time. Photic stimulation is unremarkable. The patient became drowsy that is associated with bilateral slowing. IMPRESSION: This patient's EEG continue to demonstrate generalized slowing. That is a nonspecific abnormality, which can occur with encephalopathy, effect of psychotropic medication, dementia, etc. EEG is slightly better than yesterday, but still markedly slow. No active epileptiform activity was noticed. Thank you very much for this referral. <ELECTRONICALLY SIGNED> By: Hood Molina MD 07/09/18 0940 1541 [id number] Molina MD /rula
== END 2018-07-06 11:03 | disposition home or self-care (01) | DRG 917 ==
LOC: M.ERS 05:15 → M.2W 09:31 → M.TBA-ER 09:31 → M.2W 14:12
PROVIDERS: Emergency Medicine; Family Medicine; ADMIT Internal Medicine
DX: T40.601A Poisoning by unspecified narcotics, accidental (unintentional), initial encounter (principal); J69.0 Pneumonitis due to inhalation of food and vomit; G92 Toxic encephalopathy; I67.4 Hypertensive encephalopathy; G89.29 Other chronic pain; F41.1 Generalized anxiety disorder; J45.909 Unspecified asthma, uncomplicated; K58.9 Irritable bowel syndrome, unspecified; T50.905A Adverse effect of unspecified drugs, medicaments and biological substances, initial encounter; I10 Essential (primary) hypertension; F32.9 Major depressive disorder, single episode, unspecified; Z96.659 Presence of unspecified artificial knee joint; Z87.11 Personal history of peptic ulcer disease; Z86.73 Personal history of transient ischemic attack (TIA), and cerebral infarction without residual deficits; Z85.46 Personal history of malignant neoplasm of prostate; Z88.8 Allergy status to other drugs, medicaments and biological substances; Z79.899 Other long term (current) drug therapy; Y92.89 Other specified places as the place of occurrence of the external cause; Z85.028 Personal history of other malignant neoplasm of stomach

== ENCOUNTER 2018-07-08 03:52 | Inpatient (IN) | payer MEDICARE, OTHER ==
[2018-07-08] VITALS (15 sets, daily range): BP systolic 60–143; BP diastolic 32–71
[~2018-07-08] VITALS: Ht 185.4 cm; Wt 80.7 kg
[~2018-07-08 03:52] MED LIST changes: +CARISOPRODOL 3350 MG PO; +CATAPRESS3 TRANSDERM; +LISINOPRIL20 MG PO; +MUSCLE RUB CRE113 G1 TOP; +ZANAFLEX4 MG PO
[2018-07-08 04:24] LABS: ABSOLUTE LYMPHOCYTES 0.8 thou/uL (0.8-5.3); ABSOLUTE MONOCYTES 0.6 thou/uL (0.0-1.2); ABSOLUTE NEUTROPHILS 4.6 thou/uL (1.6-8.1); BASOPHILS 0.5 %; EOSINOPHILS 0.3 %; HEMATOCRIT 34.2 % (42.0-52.0); HEMOGLOBIN 11.3 gm/dL (14.0-18.0); LYMPHOCYTES 13.2 %; MCH 28.3 pg (26.0-34.0); MCHC 32.9 g/dL (28.0-37.0); MONOCYTES 9.7 %; MPV 8.7 fl. (7.2-11.1); NUCLEATED RBCS 0 /100WBC; PLATELET COUNT* 338 thou/uL (150-400); POLYS 76.3 %; RBC 3.98 mil/uL (4.50-6.00); RDW-CV 13.8 % (10.5-14.5)
[2018-07-08 04:31] LABS: ANION GAP 10 mmol/L (7-16); BUN 37 mg/dL (7-18); CALCIUM 9.1 mg/dL (8.5-10.1); CHLORIDE 101 mmol/L (98-107); CO2 26 mmol/L (21-32); GLUCOSE 125 mg/dL (70-99); SODIUM 137 mmol/L (136-145)
[2018-07-08 04:32] LABS: APTT 28.5 Seconds (25.0-31.3); CREATININE 2.2 mg/dL (0.6-1.3); INR 1.1; PROTIME 10.9 Seconds (9.20-11.50)
[2018-07-08 04:38] LABS: ALKALINE PHOSPHATASE 56 U/L (46-116); SGOT 21 U/L (15-37); SGPT 33 U/L (30-65); TOTAL BILIRUBIN 0.2 mg/dL (<0.1-1.0); TOTAL PROTEIN 6.3 g/dL (6.4-8.2); TROPONIN-I LEVEL <0.06 ng/mL (<0.06)
[2018-07-08 08:17] LABS: URINE BILIRUBIN NEGATIVE (Negative); URINE BLOOD NEGATIVE (Negative); URINE CLARITY CLEAR; URINE COLOR YELLOW; URINE GLUCOSE-RANDOM NEGATIVE (Negative); URINE KETONES NEGATIVE (Negative); URINE LEUKOCYTES-REFLEX NEGATIVE (Negative); URINE NITRITE-REFLEX NEGATIVE (Negative); URINE PROTEIN NEGATIVE (Negative); URINE UROBILINOGEN 0.2 E.U./dl (0.2-1.0)
[2018-07-08 11:36] LABS: AMP/METHAMP Negative (Negative); BARBITURATES Negative (Negative); BENZODIAZEPINES Negative (Negative); COCAINE Negative (Negative); METHADONE POSITIVE (Negative); OPIATES Negative (Negative); PCP Negative (Negative); THC Negative (Negative)
--- NOTE | 2018-07-08 15:36 | EKG ---
[place] [address] ELECTROCARDIOGRAM REPORT Name: KALYN SHAH Room: [address] ADM IN M.R.#: [id number] Admission: 07/08/18 Attend Phys: Dandy Goodrich MD Discharge: Date of : 53 Report #: [id number] THIS REPORT FOR: //name// [facility] ED Test Date: 2018-07-08 Test Time: 04:22:01 Pat Name: KALYN SHAH Department: Room: [facility] Gender: M Tightening Machine Operator: Cortez STORY : 1955 Requested By: Tiffanie Torres Order Number: [id number] MD: Kalyn West Measurements Intervals [place] Rate: 71 P: 85 DC: 173 QRS: 62 QRSD: 106 T: 71 QT: 482 QTc: 524 Interpretive Statements Sinus rhythm Prolonged QT interval Compared to ECG 06/30/2018 05:27:19 Prolonged QT interval now present Electronically Signed On 07-08-2018 15:36:36 TIRE DESIGN ENGINEER by Kalyn West [email or web address] <ELECTRONICALLY SIGNED> By: Kalyn West MD, [facility] 07/08/18 1536 0422 0422 Kalyn West MD, [facility] /EPI
[2018-07-09] VITALS (9 sets, daily range): BP systolic 125–210; BP diastolic 12–128
[2018-07-09 05:06] LABS: ABSOLUTE EOSINOPHILS 0.1 thou/uL (0.0-0.7); ABSOLUTE LYMPHOCYTES 1.1 thou/uL (0.8-5.3); ABSOLUTE MONOCYTES 0.3 thou/uL (0.0-1.2); ABSOLUTE NEUTROPHILS 3.1 thou/uL (1.6-8.1); EOSINOPHILS 1.6 %; HEMATOCRIT 30.1 % (42.0-52.0); LYMPHOCYTES 23.4 %; MCH 28.9 pg (26.0-34.0); MCHC 33.4 g/dL (28.0-37.0); MCV 86.5 fL (80.0-100.0); MONOCYTES 7.1 %; MPV 8.5 fl. (7.2-11.1); NUCLEATED RBCS 0 /100WBC; POLYS 66.9 %; RBC 3.47 mil/uL (4.50-6.00); RDW-CV 14.1 % (10.5-14.5); WBC 4.7 thou/uL (4.0-11.0)
[2018-07-09 05:07] LABS: PLATELET COUNT* 229 thou/uL (150-400)
[2018-07-09 05:55] LABS: CALCIUM 8.6 mg/dL (8.5-10.1); POTASSIUM 4.9 mmol/L (3.5-5.1)
[2018-07-09 05:56] LABS: CREATININE 1.1 mg/dL (0.6-1.3)
[2018-07-10 00:05] VITALS: BP 205/116
[2018-07-10 01:50] VITALS: BP 162/102
[2018-07-10 06:00] VITALS: BP 168/107
[2018-07-10 06:06] LABS: CALCIUM 9.9 mg/dL (8.5-10.1); CREATININE 0.9 mg/dL (0.6-1.3)
[2018-07-10 06:19] LABS: POTASSIUM 3.9 mmol/L (3.5-5.1)
[2018-07-10 07:09] LABS: ABSOLUTE BASOPHILS 0.1 thou/uL (0.0-0.2); ABSOLUTE EOSINOPHILS 0.1 thou/uL (0.0-0.7); ABSOLUTE LYMPHOCYTES 1.4 thou/uL (0.8-5.3); ABSOLUTE MONOCYTES 0.9 thou/uL (0.0-1.2); ABSOLUTE NEUTROPHILS 6.3 thou/uL (1.6-8.1); BASOPHILS 1.3 %; EOSINOPHILS 1.2 %; HEMATOCRIT 38.4 % (42.0-52.0); LYMPHOCYTES 16.1 %; MCHC 33.1 g/dL (28.0-37.0); MCV 84.7 fL (80.0-100.0); MONOCYTES 9.9 %; MPV 8.9 fl. (7.2-11.1); NUCLEATED RBCS 0 /100WBC; POLYS 71.5 %; RBC 4.54 mil/uL (4.50-6.00); RDW-CV 13.4 % (10.5-14.5); WBC 8.8 thou/uL (4.0-11.0)
[2018-07-10 07:13] LABS: HEMOGLOBIN 12.7 gm/dL (14.0-18.0); PLATELET COUNT* 393 thou/uL (150-400)
[2018-07-10 08:00] VITALS: BP 177/110
[2018-07-10 09:00] VITALS: BP 116/71
[2018-07-10 10:08] VITALS: BP 177/110
[2018-07-10] MEDS ORDERED: ZANAFLEX4 MG PO (10:11)
[2018-07-10] MEDS ORDERED: FLORINEF ACETA0.1 MG PO (10:16)
== END 2018-07-10 11:25 | disposition home health service (06) | DRG 314 ==
LOC: M.ERS 03:52 → M.TBA-ER 05:47 → M.ICU 09:29 → M.2W 19:56
PROVIDERS: Emergency Medicine; ADMIT Internal Medicine
DX: I95.9 Hypotension, unspecified (principal); G92 Toxic encephalopathy; N17.9 Acute kidney failure, unspecified; J45.909 Unspecified asthma, uncomplicated; F41.1 Generalized anxiety disorder; F32.9 Major depressive disorder, single episode, unspecified; Z96.659 Presence of unspecified artificial knee joint; G89.29 Other chronic pain; M54.9 Dorsalgia, unspecified; Z71.41 Alcohol abuse counseling and surveillance of alcoholic; Z86.73 Personal history of transient ischemic attack (TIA), and cerebral infarction without residual deficits; Z87.11 Personal history of peptic ulcer disease; Z85.46 Personal history of malignant neoplasm of prostate

== ENCOUNTER → 2018-07-24 | Outpatient (CLI) | payer MEDICARE, OTHER ==
[2018-07-24 16:16] LABS: CHOLESTEROL 177 mg/dL (<200); HDL CHOLESTEROL 58 mg/dL (>40); LDL CHOLESTEROL 106 mg/dL (<100); TC:HDL 3.1 Ratio (Not establshd); TRIGLYCERIDE 65 mg/dL (<150); VLDL 13 mg/dL (<40)
[2018-07-24 16:18] LABS: SERUM ASSESSMENT CLEAR
== END ==
LOC: M.MRI 07-20 15:36 → M.LAB 15:38 → M.MRI 15:38
PROVIDERS: Psychiatry & Neurology Neuromuscular Medicine
DX: G45.9 Transient cerebral ischemic attack, unspecified (principal); G93.40 Encephalopathy, unspecified; G31.9 Degenerative disease of nervous system, unspecified

== ENCOUNTER 2018-08-11 08:24 | Inpatient (IN) | payer MEDICARE, OTHER ==
[~2018-08-11] VITALS: Ht 185.4 cm; Wt 82.4 kg
[2018-08-11 08:30] VITALS: BP 152/94
[2018-08-11 08:46] LABS: ABSOLUTE BASOPHILS 0.1 thou/uL (0.0-0.2); ABSOLUTE EOSINOPHILS 0.4 thou/uL (0.0-0.7); ABSOLUTE LYMPHOCYTES 1.1 thou/uL (0.8-5.3); ABSOLUTE MONOCYTES 0.5 thou/uL (0.0-1.2); ABSOLUTE NEUTROPHILS 4.8 thou/uL (1.6-8.1); BASOPHILS 0.9 %; EOSINOPHILS 5.5 %; HEMATOCRIT 31.8 % (42.0-52.0); HEMOGLOBIN 10.7 gm/dL (14.0-18.0); LYMPHOCYTES 15.6 %; MCH 29.1 pg (26.0-34.0); MCHC 33.5 g/dL (28.0-37.0); MCV 86.8 fL (80.0-100.0); MONOCYTES 7.6 %; MPV 7.7 fl. (7.2-11.1); NUCLEATED RBCS 0 /100WBC; PLATELET COUNT* 307 thou/uL (150-400); POLYS 70.4 %; RBC 3.66 mil/uL (4.50-6.00); RDW-CV 14.1 % (10.5-14.5); WBC 6.8 thou/uL (4.0-11.0)
[2018-08-11 08:58] LABS: ANION GAP 2 mmol/L (7-16); BUN 26 mg/dL (7-18); CHLORIDE 106 mmol/L (98-107); CO2 30 mmol/L (21-32); CREATININE 1.4 mg/dL (0.6-1.3); GLUCOSE 115 mg/dL (70-99); POTASSIUM 4.9 mmol/L (3.5-5.1); SODIUM 138 mmol/L (136-145)
[2018-08-11 09:09] LABS: ALBUMIN 3.4 g/dL (3.4-5.0); ALKALINE PHOSPHATASE 54 U/L (46-116); CK-MB MASS 3.9 ng/mL (<0.5-3.6); NT-PRO BRAIN NAT PEPTIDE 241 pg/mL (<300); SGOT 31 U/L (15-37); SGPT 35 U/L (30-65); TOTAL BILIRUBIN 0.2 mg/dL (<0.1-1.0); TOTAL PROTEIN 6.2 g/dL (6.4-8.2); TROPONIN-I LEVEL <0.06 ng/mL (<0.06)
[2018-08-11 09:11] LABS: APTT 24.5 Seconds (25.0-31.3)
[2018-08-11 11:01] LABS: URINE BILIRUBIN NEGATIVE (Negative); URINE BLOOD NEGATIVE (Negative); URINE CLARITY CLEAR; URINE COLOR YELLOW; URINE GLUCOSE-RANDOM NEGATIVE (Negative); URINE KETONES NEGATIVE (Negative); URINE LEUKOCYTES-REFLEX NEGATIVE (Negative); URINE NITRITE-REFLEX NEGATIVE (Negative); URINE PROTEIN NEGATIVE (Negative); URINE UROBILINOGEN 0.2 E.U./dl (0.2-1.0)
[2018-08-11 11:08] LABS: AMP/METHAMP Negative (Negative); BARBITURATES Negative (Negative); BENZODIAZEPINES Negative (Negative); COCAINE Negative (Negative); METHADONE Negative (Negative); OPIATES Negative (Negative); PCP Negative (Negative); THC Negative (Negative)
--- NOTE | 2018-08-11 12:37 | NUR ---
AT 1230, PT GOT UP OUT OF BED; CONFUSED WASN'T SURE WHY HE WAS HERE AND WONDER WHERE HIS WENT. INCONTINENT OF URINE, 500 ML PALE YELLOW CLEAR URINE NOTED IN URINAL, BRIEF SATURATED WITH URINE. NOTIFIED DR CEBALLOS OF INCREASE IN CONFUSION, NO NEW ORDERS AT THIS TIME. WILL CONTINUE TO MONITOR CLOSELY
[2018-08-11 15:13] VITALS: BP 148/80
[2018-08-11 15:30] VITALS: BP 137/72
--- NOTE | 2018-08-11 16:45 | NUR ---
PATIENT RESTING IN BED RIGHT NOW, NO PAIN AT THIS TIME, NO NAUSEA, NO SHORTNESS OF AIR. RESTING IN BED WITH HIGH FALL PRECAUTIONS IN PLACE, SUPERVISOR INTELLIGENCE ANALYST IN PLACE. NEURO CONSULT CALLED, TELEPSYCH TO BE INITIATED TOMORROW. ATTEMPTED TO CONTACT [facility] BUT THEY WERE NOT OPEN AFTER 1629. LEFT A MESSAGE TO RETURN CALL TO [address] [place] [address] TO CONFIRM DOSAGE OF [facility]. NO OTHER CONCERNS AT THIS TIME. BED IN LOWEST POSITION, CALL LIGHT IN REACH, SUPERVISOR INTELLIGENCE ANALYST IN PLACE
[2018-08-11 19:50] VITALS: BP 130/82
[2018-08-12] VITALS: BP 153/93
[2018-08-12 04:00] VITALS: BP 142/82
[2018-08-12 05:22] LABS: HEMATOCRIT 30.6 % (42.0-52.0); HEMOGLOBIN 10.2 gm/dL (14.0-18.0); MCH 28.8 pg (26.0-34.0); MCHC 33.5 g/dL (28.0-37.0); MCV 86.1 fL (80.0-100.0); MPV 8.5 fl. (7.2-11.1); RBC 3.55 mil/uL (4.50-6.00); RDW-CV 13.8 % (10.5-14.5); WBC 5.5 thou/uL (4.0-11.0)
[2018-08-12 05:40] LABS: ALBUMIN 2.9 g/dL (3.4-5.0); CALCIUM 7.9 mg/dL (8.5-10.1); CREATININE 0.9 mg/dL (0.6-1.3); MAGNESIUM 3.1 mg/dL (1.8-2.4); TOTAL BILIRUBIN 0.2 mg/dL (<0.1-1.0); TOTAL PROTEIN 5.6 g/dL (6.4-8.2)
--- NOTE | 2018-08-12 07:02 | NUR ---
VITALS WNL. SEE MAR. SEE CHARTING. FALL PRECAUTIONS IN PLACE, HOURLY ROUNDING FOR SAFETY.
[2018-08-12 08:03] VITALS: BP 138/85
--- NOTE | 2018-08-12 10:15 | NUR ---
PT IS ALERT AND ORIENTED WITH PERIODS OF FORGETFULLNESS. TELE TRACKING NSR AND ALL VSS ON ROOM AIR. DENIES CP,SOA. PT AND EDUCATED ON SAFETY AND PLAN OF CARE. BED ALARM ON AND CALL LIGHT IN REACH. PLEASE SEE ASSESSMENT FOR ADDITIONAL INFORMATION. WILL CONTINUE TO MONITOR
[2018-08-12 12:00] VITALS: BP 123/77
--- NOTE | 2018-08-12 13:54 | NUR ---
Pt is A&O. Resides at home with his . Known to this CM from previous hospital stay. Pt is normally independent. Uses a cane for mobility. Hx of [facility]. No hx of SNF. Goal is home at nv. Following.
[2018-08-12 15:40] VITALS: BP 152/95
--- NOTE | 2018-08-12 15:49 | EKG ---
[place] [address] ELECTROCARDIOGRAM REPORT Name: KALYN SHAH Room: [address] ADM IN M.R.#: [id number] Admission: 08/11/18 Attend Phys: Kenna Townsend MD Discharge: Date of : 53 Report #: [id number] THIS REPORT FOR: //name// [facility] ED Test Date: 2018-08-11 Test Time: 08:43:37 Pat Name: KALYN SHAH Department: Room: [facility] Gender: M Bath Steward: URSULA : 1955 Requested By: Blair Noriega Order Number: [id number] MD: Virgilio Rosen Measurements Intervals [place] Rate: 65 P: 52 AL: 186 QRS: -9 QRSD: 111 T: 22 QT: 434 QTc: 452 Interpretive Statements Sinus rhythm Compared to ECG 07/08/2018 04:22:01 Prolonged QT interval no longer present Electronically Signed On 08-12-2018 15:49:31 REHABILITATION SPECIALIST by Virgilio Rosen [email or web address] <ELECTRONICALLY SIGNED> By: Virgilio Rosen MD, [facility] 08/12/18 1549 0843 0843 Virgilio Rosen MD, [facility] /EPI
[2018-08-12 19:50] VITALS: BP 131/80
[2018-08-13 00:08] VITALS: BP 147/85
[2018-08-13 04:08] VITALS: BP 138/94
[2018-08-13 08:17] VITALS: BP 154/91
[2018-08-13] MEDS ORDERED: SYNTHROID50 MCG PO (10:31)
[2018-08-13 11:00] VITALS: BP 154/91
[2018-08-13 11:08] VITALS: BP 154/91
--- NOTE | 2018-08-13 11:15 | NUR ---
Pt discharging to home today, faxed resumption orders to [facility]
--- NOTE | 2018-08-13 11:32 | NUR ---
PT ALERT AND ORIENTED. TELE TRACKING NSR AND ALL VSS ON ROOM AIR. PT DENIES PAIN, SOA. ADEQUATE URINE OUTPUT AND 1 BM SO FAR THIS SHIFT. EDUCATED ON SAFETY AND PLAN OF CARE. LOOKING FORWARD TO DC LATER TODAY. PLEASE SEE ASSESSMENT FOR ADDITIONAL INFORMATION. WILL CONTINUE TO MONITOR
--- NOTE | 2018-08-13 16:20 | NUR ---
I have reviewed the documentation by DEMARIO WARD from TODAY 08/13/18 and I concur with it. SHAMIR MOLINA
--- NOTE | 2018-08-17 09:54 | CON ---
[address] [address] CONSULTATION Name: KALYN SHAH Room: [address] IN M.R.#: [id number] Admission: 08/11/18 Attend Phys: Kenna Townsend MD Discharge: 08/13/18 Date of : 53 Report #: [id number] THIS REPORT FOR: //name// CC: Damir Townsend DATE OF SERVICE: 08/12/2018 HISTORY OF PRESENT ILLNESS: This is a 63-year-old male patient who indicates yesterday he had altered mental status. His speech was intact, but he was confused. He did not know where he was and his memory was poor. He did not think he messed up his medication. The says she does not know for sure. Since then, he has returned back to his baseline. REVIEW OF SYSTEMS: Indicate that he is well known to me. I have seen him in the past. I reviewed all those records. He has a history of stomach ulcer, prostatic syndrome, orthostatic hypotension, opioid dependency and now he takes methadone, back pain, knee replacements, TIAs, adrenal insufficiency and takes some calcium supplement. This was his relevant 14-point review of systems PAST MEDICAL HISTORY: Positive for confusion and prolonged course here. FAMILY HISTORY: Unremarkable. SOCIAL HISTORY: He said he does not drink any alcohol. PHYSICAL EXAMINATION: The patient's examination indicate he is alert, responsive, able to follow simple and complex command. His cranial nerve examinations appear mostly unremarkable. His neuromuscular examination is unremarkable. His cardiac examination is unremarkable. Blood pressure is 152/95, his pulse is 55 and temperature is 98.3. LABORATORY DATA: His white count is normal. His GFR is normal. His imaging study, CT was done and that appeared unremarkable. IMPRESSION: This patient's symptoms are difficult to evaluate. I will get an EEG done again, but we have done an extensive workup in this patient in the past and I suspect his problem is going to be most likely related to his medication. RECOMMENDATIONS: 1. EEG. 2. We [place] [address] CONSULTATION Name: KALYN SHAH Room: [address] IN [facility].#: [id number] Admission: 08/11/18 Attend Phys: Kenna Townsend MD Discharge: 08/13/18 Date of : 53 Report #: [id number] More than 35 minutes of time was spent taking care of this patient today and majority of the time was spent counseling and coordinating his care. <ELECTRONICALLY SIGNED> By: Hood Molina MD 08/17/18 0954 1550 2354Pbrenda Molina MD /nt
--- NOTE | 2018-08-17 09:54 | EEG ---
[address] [address] EEG STUDY REPORT Name: KALYN SHAH Room: [address] IN M.R.#: [id number] Admission: 08/11/18 Attend Phys: Kenna Townsend MD Discharge: 08/13/18 Date of : 53 Report #: [id number] THIS REPORT FOR: //name// CC: Damir Townsend DATE OF SERVICE: 08/12/2018 This patient is being evaluated for altered mental status. EEG was done by placing the electrodes by standard 10-20 system of electrode placement. Both referential and sequential montages were used for recording. Background activity in this patient's EEG is about 8-9 Hz and 30 microvolt. It is intermixed with theta range slowing on both sides. The patient became drowsy that is associated with bilateral slowing and vertex sharp waves. Photic stimulation is unremarkable. Throughout the record no active epileptiform activity was noticed. IMPRESSION: This patient's electroencephalogram is intermixed with theta range slowing on both sides. That is a nonspecific abnormality, which can occur with dementia, encephalopathy, effect of psychotropic medications, etc. Clinical correlation is recommended. <ELECTRONICALLY SIGNED> By: Hood Molina MD 08/17/18 0954 1744 1751Pbrenda Molina MD /nt
== END 2018-08-13 13:40 | disposition home health service (06) | DRG 917 ==
LOC: M.ERS 08:24 → M.TBA-ER 12:34 → M.2W 12:34
PROVIDERS: Family Medicine; ADMIT Internal Medicine
DX: T40.3X1A Poisoning by methadone, accidental (unintentional), initial encounter (principal); G92 Toxic encephalopathy; E27.40 Unspecified adrenocortical insufficiency; J45.909 Unspecified asthma, uncomplicated; F41.1 Generalized anxiety disorder; F32.9 Major depressive disorder, single episode, unspecified; G89.29 Other chronic pain; M54.9 Dorsalgia, unspecified; Z96.659 Presence of unspecified artificial knee joint; K58.9 Irritable bowel syndrome, unspecified; E03.9 Hypothyroidism, unspecified; Y92.89 Other specified places as the place of occurrence of the external cause; Z85.46 Personal history of malignant neoplasm of prostate; Z86.73 Personal history of transient ischemic attack (TIA), and cerebral infarction without residual deficits; Z87.11 Personal history of peptic ulcer disease; Z79.899 Other long term (current) drug therapy

== ENCOUNTER 2018-10-15 04:11 | Observation (INO) | payer MEDICARE, OTHER ==
[~2018-10-15] VITALS: Ht 185.4 cm; Wt 96.2 kg
[2018-10-15] VITALS (8 sets, daily range): BP systolic 110–152; BP diastolic 56–87
[~2018-10-15 04:11] MED LIST changes: +SYNTHROID50 MCG PO
[2018-10-15 04:39] LABS: ABSOLUTE EOSINOPHILS 0.2 thou/uL (0.0-0.7); ABSOLUTE MONOCYTES 0.4 thou/uL (0.0-1.2); ABSOLUTE NEUTROPHILS 3.1 thou/uL (1.6-8.1); BASOPHILS 0.9 %; EOSINOPHILS 4.1 %; HEMATOCRIT 27.9 % (42.0-52.0); HEMOGLOBIN 9.1 gm/dL (14.0-18.0); LYMPHOCYTES 21.1 %; MCH 26.7 pg (26.0-34.0); MCHC 32.5 g/dL (28.0-37.0); MCV 82.1 fL (80.0-100.0); MONOCYTES 7.8 %; MPV 8.7 fl. (7.2-11.1); NUCLEATED RBCS 0 /100WBC; PLATELET COUNT* 253 thou/uL (150-400); POLYS 66.1 %; RDW-CV 14.3 % (10.5-14.5); WBC 4.7 thou/uL (4.0-11.0)
[2018-10-15 04:46] LABS: URINE BILIRUBIN NEGATIVE (Negative); URINE BLOOD NEGATIVE (Negative); URINE CLARITY CLEAR; URINE COLOR YELLOW; URINE GLUCOSE-RANDOM NEGATIVE (Negative); URINE KETONES NEGATIVE (Negative); URINE LEUKOCYTES-REFLEX NEGATIVE (Negative); URINE NITRITE-REFLEX NEGATIVE (Negative); URINE PROTEIN NEGATIVE (Negative); URINE SPECIFIC GRAVITY 1.025 (1.005-1.030); URINE UROBILINOGEN 0.2 E.U./dl (0.2-1.0)
[2018-10-15 04:47] LABS: APTT 26.2 Seconds (25.0-31.3); PROTIME 10.6 Seconds (9.20-11.50)
[2018-10-15 04:56] LABS: ANION GAP 7 mmol/L (7-16); BUN 32 mg/dL (7-18); CALCIUM 8.5 mg/dL (8.5-10.1); CHLORIDE 113 mmol/L (98-107); CO2 24 mmol/L (21-32); CREATININE 1.1 mg/dL (0.6-1.3); GLUCOSE 103 mg/dL (70-99); POTASSIUM 4.7 mmol/L (3.5-5.1); SODIUM 144 mmol/L (136-145); TROPONIN-I LEVEL <0.06 ng/mL (<0.06)
[2018-10-15 05:02] LABS: ALBUMIN 3.2 g/dL (3.4-5.0); ALKALINE PHOSPHATASE 55 U/L (46-116); CK-MB MASS 4.4 ng/mL (<0.5-3.6); NT-PRO BRAIN NAT PEPTIDE 204 pg/mL (<300); SGOT 21 U/L (15-37); SGPT 21 U/L (30-65); TOTAL BILIRUBIN 0.1 mg/dL (<0.1-1.0); TOTAL PROTEIN 6.1 g/dL (6.4-8.2)
[2018-10-15 05:24] LABS: AMP/METHAMP Negative (Negative); BARBITURATES Negative (Negative); BENZODIAZEPINES Negative (Negative); COCAINE Negative (Negative); METHADONE POSITIVE (Negative); OPIATES Negative (Negative); PCP Negative (Negative); THC Negative (Negative)
--- NOTE | 2018-10-15 07:15 | NUR ---
CHNAGE OF SHIFT BESDIE REPORT GIVEN PATIENT SEEN AT BEDSIDE, IN BED ASLEEP ASSUMED PATIENT CARE BED ALARM SET
--- NOTE | 2018-10-15 08:28 | NUR ---
REPORT RECEIVED FROM LUIS MIGUEL CRUZ IN ED. PT ARRIVED TO ROOM 200 (APPROX 0610) PER CART. NONVERBAL. NONRESPONVE. NO EYE CONTACT. UNABLE TO FOLLOW SIMPLE COMMANDS TO TRANSFER HIMSELF FROM CART TO BED. 2 RN ASSIST. PT HAVING TREMORS IN FEET AND RESTLESS/CONSTANTLY MOVING AROUND IN THE BED. REPORTED PT'S SYPMTOMS STARTED APPROX 0100 THIS AM- AND THAT "HE WAS MOWING THE YARD AND FIXING THE CONCRETE ON THE CURB" AND WAS ALERT AND ORIENTED YESTERDAY. SHE REPORTS PT HAS "HAD THESE EPISODES BEFORE." PT'S PUPILS WERE FIXED AND NON-REACTIVE. NOTIFIED CHIEF ORDER DISPATCHER. AFTER ASSESSMENT PT SUDDENLY BLURTED OUT "I GOTTA PEE!" ASSISTED PT WITH URINAL. PT "CAME TO" AND WAS ALERT TO SELF AND PLACE. DIDNT REMEMBER HOW HE GOT TO THE HOSPITAL OR MOWING THE GRASS YESTERDAY. WAS ABLE TO FOLLOW COMMANDS AND READ COMPLETE SENTENCES IN NIH PACKET. PERFORMED NIH @ THAT TIME. NIH SCALE 4. RECHECKED PT'S PUPILS AFTER HE FELL ASLEEP AND THEY WERE REACTIVE. DR MATTHEWS. NEURO CONSULT ORDERED. REPORT GIVEN TO RICCO CRUZ.
--- NOTE | 2018-10-15 17:00 | NUR ---
DR SALAS CONTACTED TO REPORT MRI RESULTS AND ASKED IF OK TO CLEAR PATIENT FOR DISCHARGE. AFTER SPEAKING TO ON THE TELEPHONE DR SALAS NOT READY TO CLEAR PATIENT FOR DISCHARGE STATES "PATIENT IS NOT BACK TO NORMAL"
--- NOTE | 2018-10-15 18:23 | EKG ---
[place] [address] ELECTROCARDIOGRAM REPORT Name: KALYN SHAH Room: [address] M.R.#: [id number] Admission: 10/15/18 Attend Phys: Kenna Townsend MD Discharge: Date of : 53 Report #: [id number] THIS REPORT FOR: //name// [facility] ED Test Date: 2018-10-15 Test Time: 04:19:35 Pat Name: KALYN PACHECOTHOR Department: Room: [facility] Gender: M Broker Associate: : 1955 Requested By: Blair Noriega Order Number: [id number] MD: Roscoe Marti Measurements Intervals [place] Rate: 68 P: 62 TX: 187 QRS: 13 QRSD: 112 T: 43 QT: 435 QTc: 463 Interpretive Statements Sinus rhythm Borderline intraventricular conduction delay Borderline low voltage, extremity leads Compared to ECG 08/11/2018 08:43:37 No significant changes Electronically Signed On 10-15-2018 18:23:31 CDT by Roscoe Marti [email or web address] <ELECTRONICALLY SIGNED> By: Roscoe Marti MD, [facility] 10/15/18 1823 0419 0419 Roscoe Marti MD, [facility] /EPI
[2018-10-16] VITALS: BP 169/83
[2018-10-16 04:00] VITALS: BP 174/95
[2018-10-16 05:16] VITALS: BP 169/90
--- NOTE | 2018-10-16 06:45 | NUR ---
ASSUMED CARE OF PT AFTER REPORT TA 1929. PT A&OX4. FORGETFUL. VSS. PHYSICAL ASSESSMENT COMPLETED AND CHARTED. PT ON RA WITH 93% O2 SAT. PT TRACING SR 1STDEG ON TELE. PT COMPLAINED OF HEAD & BACK PAIN- PAIN MEDS GIVEN PER MAR. CALL LIGHT WITHIN REACH. FALL PRECAUTIONS IN PLACE.
--- NOTE | 2018-10-16 07:15 | NUR ---
CHANGE OF SHIFT BEDSIDE REPORT GIVERN PATIENT SEEN AT BEDSIDE, IN BED ASLEEP ASSUMED PATIENT CARE
[2018-10-16 08:00] VITALS: BP 154/100
[2018-10-16 11:41] VITALS: BP 154/100
[2018-10-16 11:53] VITALS: BP 170/87
--- NOTE | 2018-10-16 13:08 | NUR ---
PATIENT DISCHARGED TO HOME DISCHARGE INFORMATION REVIEWED, ACKNOWLEDGED, SIGNED COPIES GIVEN IV AND HEART MONITOR REMOVED PERSONAL BELONGINGS RETURNED ASSISTED OUT VIA WC TO WAITING CAR WITH SPOUSE,
--- NOTE | 2018-10-19 13:37 | EEG ---
[address] [address] EEG STUDY REPORT Name: PABLOKALYNTIN Room: [address] Kathy#: [id number] Admission: 10/15/18 Attend Phys: Kenna Townsend MD Discharge: 10/16/18 Date of : 53 Report #: [id number] THIS REPORT FOR: //name// CC: Damir Townsend DATE OF SERVICE: 10/15/2018 This patient is being evaluated for altered mental status. EEG is masked by a lot of artifact, and the patient did not cooperate and therefore EEG is difficult to interpret. It was done by placing the electrodes by standard 10-20 system of electrode placement. Both referential and sequential montages were used for recording. Background activity when the muscle artifact is not present appeared to be about 8 Hz and 30 microvolt. The patient became drowsy that is associated with bilateral slowing and vertex sharp waves. Photic stimulation was unremarkable. Throughout the record, no active epileptiform activity was noticed. IMPRESSION: This patient's EEG is intermixed with theta range slowing on both sides. That is a nonspecific abnormality, which can occur with dementia, encephalopathy, effect of psychotropic medication, etc. Clinical correlation is recommended. <ELECTRONICALLY SIGNED> By: Hood Molina MD 10/19/18 1337 1207 1353Pbrenda Molina MD /rula
== END 2018-10-16 13:00 | disposition home or self-care (01) ==
LOC: M.ERS 04:11 → M.2W 05:09 → M.TBA-ER 05:09 → M.2W 05:44
PROVIDERS: Family Medicine; ADMIT Internal Medicine
DX: G45.4 Transient global amnesia (principal); G25.9 Extrapyramidal and movement disorder, unspecified; F32.9 Major depressive disorder, single episode, unspecified; F41.1 Generalized anxiety disorder; E03.9 Hypothyroidism, unspecified; E44.1 Mild protein-calorie malnutrition; M54.9 Dorsalgia, unspecified; G89.29 Other chronic pain; K58.1 Irritable bowel syndrome with constipation; C61 Malignant neoplasm of prostate; J45.909 Unspecified asthma, uncomplicated; I95.1 Orthostatic hypotension; Z86.73 Personal history of transient ischemic attack (TIA), and cerebral infarction without residual deficits

== ENCOUNTER 2019-09-04 09:09 | Emergency (ER) | payer MEDICARE, OTHER ==
[~2019-09-04] VITALS: Ht 185.4 cm; Wt 88.5 kg
[2019-09-04] MEDS ORDERED: NORVASC 2.5 MG2.5 M1 PO (09:19)
[2019-09-04] MEDS ORDERED: VENTOLIN HFA 1818 GM INH (09:19)
[2019-09-04] MEDS ORDERED: CAPSAICIN42.5 GM TOP (09:20)
[2019-09-04] MEDS ORDERED: BENTYL 10 MG CA10 MG PO (09:20)
[2019-09-04] MEDS ORDERED: CASODEX 50 MG T50 M1 PO (09:20)
[2019-09-04] MEDS ORDERED: PERCOCET 10-321 EAC1 PO (09:21)
[2019-09-04] MEDS ORDERED: LEVO-T50 MCG PO (09:21)
[2019-09-04] MEDS ORDERED: COZAAR 25 MG TA25 M2 PO (09:21)
[2019-09-04] MEDS ORDERED: NEXIUM40 M2 PO (09:21)
[2019-09-04] MEDS ORDERED: OPANA10 MG PO (09:22)
[2019-09-04] MEDS ORDERED: MIRALAX119 GM PO (09:22)
[2019-09-04] MEDS ORDERED: PROZAC20 M1 PO (09:22)
[2019-09-04] MEDS ORDERED: REMERON15 M2 PO (09:23)
[2019-09-04 09:41] LABS: ABSOLUTE LYMPHOCYTES 0.9 thou/uL (0.8-5.3); ABSOLUTE MONOCYTES 0.5 thou/uL (0.0-1.2); ABSOLUTE NEUTROPHILS 6.7 thou/uL (1.6-8.1); BASOPHILS 0.3 %; EOSINOPHILS 0.4 %; HEMATOCRIT 40.5 % (42.0-52.0); MCH 27.3 pg (26.0-34.0); MCHC 34.6 g/dL (28.0-37.0); MCV 78.9 fL (80.0-100.0); MONOCYTES 6.6 %; MPV 8.4 fl. (7.2-11.1); NUCLEATED RBCS 0 /100WBC; PLATELET COUNT* 349 thou/uL (150-400); POLYS 81.7 %; RBC 5.13 mil/uL (4.50-6.00); RDW-CV 14.7 % (10.5-14.5); WBC 8.2 thou/uL (4.0-11.0)
[2019-09-04 09:57] LABS: CALCIUM 11.2 mg/dL (8.5-10.1); CREATININE 1.4 mg/dL (0.6-1.3); POTASSIUM 4.1 mmol/L (3.5-5.1)
[2019-09-04 10:01] LABS: ALBUMIN 4.4 g/dL (3.4-5.0); TOTAL BILIRUBIN 0.4 mg/dL (<0.1-1.0)
[2019-09-04 11:01] VITALS: BP 167/110
--- NOTE | 2019-09-05 11:05 | EKG ---
[place] [address] ELECTROCARDIOGRAM REPORT Name: KALYN SHAH [id number] Admission: 09/04/19 Attend Phys: Discharge: 09/04/19 Date of : 53 Date of Service: 09/04/19 0938 Report #: [id number] THIS REPORT FOR: //name// [facility] ED Test Date: 2019-09-04 Test Time: 09:38:53 Pat Name: KALYN SHAH Department: Room: Gender: Boiling House Hand: : 1955 Requested By: Blair Noriega Order Number: [id number] MD: Kalyn West Measurements Intervals [place] Rate: 96 P: 64 GA: 169 QRS: -5 QRSD: 104 T: 71 QT: 377 QTc: 477 Interpretive Statements Sinus rhythm Borderline low voltage, extremity leads Abnormal inferior Q waves Borderline prolonged QT interval Compared to ECG 10/15/2018 04:19:35 Inferior Q waves now present Electronically Signed On 09-05-2019 11:04:01 AMERICAN HISTORY PROFESSOR by Kalyn West [email or web address] <ELECTRONICALLY SIGNED> By: Kalyn West MD, FAC 09/05/19 1104 Kalyn Wset MD, [facility] /EPI
== END 2019-09-04 11:01 | disposition home or self-care (01) ==
LOC: M.ERS 09:09
PROVIDERS: Family Medicine
DX: R10.32 Left lower quadrant pain (principal); R11.2 Nausea with vomiting, unspecified; E03.9 Hypothyroidism, unspecified; K58.9 Irritable bowel syndrome, unspecified; J45.909 Unspecified asthma, uncomplicated; M54.9 Dorsalgia, unspecified; G89.29 Other chronic pain; Z86.73 Personal history of transient ischemic attack (TIA), and cerebral infarction without residual deficits; Z96.659 Presence of unspecified artificial knee joint; Z85.46 Personal history of malignant neoplasm of prostate; Z88.6 Allergy status to analgesic agent; Z88.8 Allergy status to other drugs, medicaments and biological substances

== ENCOUNTER 2020-01-28 13:58 | Inpatient (IN) | payer MEDICARE, OTHER ==
[~2020-01-28] VITALS: Ht 182.9 cm; Wt 92.1 kg
[~2020-01-28 13:58] MED LIST changes: +BENTYL 10 MG CA10 MG PO; +CAPSAICIN42.5 GM TOP; +CASODEX 50 MG T50 M1 PO; +COZAAR 25 MG TA25 M2 PO; +LEVO-T50 MCG PO; +MIRALAX119 GM PO; +NEXIUM40 M2 PO; +NORVASC 2.5 MG2.5 M1 PO; +OPANA10 MG PO; +PROZAC20 M1 PO; +REMERON15 M2 PO
[2020-01-28 14:04] VITALS: BP 219/139
[2020-01-28 15:05] LABS: ABSOLUTE BASOPHILS 0.1 thou/uL (0.0-0.2); ABSOLUTE EOSINOPHILS 0.2 thou/uL (0.0-0.7); ABSOLUTE LYMPHOCYTES 1.2 thou/uL (0.8-5.3); ABSOLUTE MONOCYTES 0.7 thou/uL (0.0-1.2); ABSOLUTE NEUTROPHILS 9.1 thou/uL (1.6-8.1); BASOPHILS 0.6 %; EOSINOPHILS 1.7 %; HEMATOCRIT 39.7 % (42.0-52.0); HEMOGLOBIN 13.3 gm/dL (14.0-18.0); LYMPHOCYTES 10.7 %; MCH 28.7 pg (26.0-34.0); MCHC 33.6 g/dL (28.0-37.0); MCV 85.4 fL (80.0-100.0); MONOCYTES 6.6 %; NUCLEATED RBCS 0 /100WBC; PLATELET COUNT* 376 thou/uL (150-400); POLYS 80.4 %; RBC 4.65 mil/uL (4.50-6.00); RDW-CV 14.5 % (10.5-14.5); WBC 11.3 thou/uL (4.0-11.0)
[2020-01-28 15:14] LABS: CALCIUM 9.3 mg/dL (8.5-10.1); CREATININE 1.1 mg/dL (0.6-1.3); POTASSIUM 4.1 mmol/L (3.5-5.1)
[2020-01-28 15:26] LABS: ALBUMIN 4.3 g/dL (3.4-5.0); TOTAL BILIRUBIN 0.3 mg/dL (<0.1-1.0); TOTAL PROTEIN 7.6 g/dL (6.4-8.2)
[2020-01-28] MEDS ORDERED: NUBEQA300 MG PO (17:37)
[2020-01-28] MEDS ORDERED: ZOLOFT100 MG PO (17:37)
[2020-01-28] MEDS ORDERED: NORCO 10-325 T1 EACH PO (17:38)
[2020-01-28] MEDS ORDERED: METHOCARBAMOL750 MG PO (17:41)
[2020-01-28 17:46] LABS: URINE BILIRUBIN NEGATIVE (Negative); URINE BLOOD NEGATIVE (Negative); URINE CLARITY CLEAR; URINE COLOR YELLOW; URINE GLUCOSE-RANDOM NEGATIVE (Negative); URINE KETONES TRACE (Negative); URINE LEUKOCYTES-REFLEX NEGATIVE (Negative); URINE NITRITE-REFLEX NEGATIVE (Negative); URINE PROTEIN 1+ (Negative); URINE UROBILINOGEN 0.2 E.U./dl (0.2-1.0)
[2020-01-28 21:19] VITALS: BP 169/94
[2020-01-28 21:30] VITALS: BP 194/110
[2020-01-29 04:00] VITALS: BP 179/87
--- NOTE | 2020-01-29 06:52 | NUR ---
PT BP ELEVATED THROUGHOUT NIGHT, MEDICATIONS GIVEN ACCORDINLY, PROVIDER NOTIFED NEW ORDERS GIVEN, PT BLOOD PRESSURE RETURNED TO ACCEPTABLE RANGE.
[2020-01-29 08:05] VITALS: BP 195/125
[2020-01-29 12:15] VITALS: BP 165/100
--- NOTE | 2020-01-29 14:50 | NUR ---
ASSUMED CARE OF PT AROUND 0730 THIS AM. REFER TO ASSESSMENT. PT GIVEN PRN HYDRALAZINE AND FENTANYL THIS AM FOR HIGH BLOOD PRESSURE AND PAIN. PT REPORTS FEELING LIGHT HEADED AND FLUSHED AFTERWARDS. BLOOD PRESSURE AND HEART RATE UNCHANGED FROM PREVIOUS ASSESSMENT. PT GIVEN A DOSE OF LABETOLOL AND STATES HE FELT MUCH BETTER SHORTLY AFTERWARD. PT REPORTS FEELING CONSTIPATED AND GIVEN MULTIPLE LAXATIVES THIS AM. PT REPORTS HE HAS HAD A BM THIS AM. NO OTHER CONCERNS AT THIS TIME. CLWR. WCTM. ANTICIPATE DC HOME TOMORROW.
[2020-01-29 15:23] LABS: AMP/METHAMP Negative (Negative); BARBITURATES Negative (Negative); BENZODIAZEPINES Negative (Negative); COCAINE Negative (Negative); METHADONE Negative (Negative); OPIATES POSITIVE (Negative); PCP Negative (Negative); THC Negative (Negative)
[2020-01-29 16:25] VITALS: BP 92/50
[2020-01-29 19:30] VITALS: BP 80/49
[2020-01-30] VITALS: BP 82/42
[2020-01-30 04:00] VITALS: BP 91/43
--- NOTE | 2020-01-30 06:42 | NUR ---
BP SOFT ALL NIGHT. PT DENIES FATIGUE AND DIZZINESS, NO INTERVENTIONS NEEDED AT THIS TIME. PT STATES HE IS READY FOR DISCHARGE.
[2020-01-30 08:00] VITALS: BP 125/74
[2020-01-30 09:19] LABS: ABSOLUTE BASOPHILS 0.1 thou/uL (0.0-0.2); ABSOLUTE EOSINOPHILS 0.1 thou/uL (0.0-0.7); ABSOLUTE LYMPHOCYTES 1.2 thou/uL (0.8-5.3); ABSOLUTE MONOCYTES 0.4 thou/uL (0.0-1.2); ABSOLUTE NEUTROPHILS 4.6 thou/uL (1.6-8.1); BASOPHILS 0.9 %; EOSINOPHILS 2.3 %; HEMATOCRIT 30.7 % (42.0-52.0); LYMPHOCYTES 18.8 %; MCH 29.7 pg (26.0-34.0); MCHC 34.6 g/dL (28.0-37.0); MONOCYTES 6.9 %; MPV 8.1 fl. (7.2-11.1); NUCLEATED RBCS 0 /100WBC; POLYS 71.1 %; RBC 3.57 mil/uL (4.50-6.00); WBC 6.4 thou/uL (4.0-11.0)
[2020-01-30 09:26] LABS: HEMOGLOBIN 10.6 gm/dL (14.0-18.0); PLATELET COUNT* 266 thou/uL (150-400)
[2020-01-30 09:30] LABS: CALCIUM 8.3 mg/dL (8.5-10.1); CREATININE 1.8 mg/dL (0.6-1.3); POTASSIUM 4.6 mmol/L (3.5-5.1)
[2020-01-30 16:56] VITALS: BP 123/61
--- NOTE | 2020-01-30 18:49 | NUR ---
PATIENT RESTING IN BED. UP AD TAMMY IN ROOM. VSS. BLOOD PRESSURES MORE STABLE TODAY. AOX4. HOURLY ROUNDING COMPLETD FOR PATIENT SAFETY
[2020-01-30 19:40] VITALS: BP 128/76
[2020-01-31] VITALS: BP 101/62
[2020-01-31 04:00] VITALS: BP 109/68
[2020-01-31 04:38] LABS: ABSOLUTE EOSINOPHILS 0.4 thou/uL (0.0-0.7); ABSOLUTE LYMPHOCYTES 1.4 thou/uL (0.8-5.3); ABSOLUTE MONOCYTES 0.6 thou/uL (0.0-1.2); ABSOLUTE NEUTROPHILS 4.1 thou/uL (1.6-8.1); BASOPHILS 0.8 %; EOSINOPHILS 5.5 %; HEMATOCRIT 31.4 % (42.0-52.0); HEMOGLOBIN 10.9 gm/dL (14.0-18.0); LYMPHOCYTES 21.8 %; MCH 29.8 pg (26.0-34.0); MCHC 34.7 g/dL (28.0-37.0); MPV 9.3 fl. (7.2-11.1); NUCLEATED RBCS 0 /100WBC; PLATELET COUNT* 247 thou/uL (150-400); POLYS 62.9 %; RBC 3.65 mil/uL (4.50-6.00); RDW-CV 14.5 % (10.5-14.5); WBC 6.5 thou/uL (4.0-11.0)
[2020-01-31 04:53] LABS: CALCIUM 8.6 mg/dL (8.5-10.1); CREATININE 1.5 mg/dL (0.6-1.3)
[2020-01-31 08:00] VITALS: BP 145/86
--- NOTE | 2020-01-31 10:31 | NUR ---
SW attempted to meet with pt and pt was sleeping and did not awaken to SW saying good morning. SW called pt to complete initial assessment, introduce self, and SW role. Pt lives at home with . Pt has cane. No hx of HH or SNF. Pt does not anticipate any dc needs at this time. SW to continue to follow to assist with safe dc planning if needs arise.
--- NOTE | 2020-01-31 11:01 | EKG ---
[place] [address] ELECTROCARDIOGRAM REPORT Name: KALYN SHAH Room: [place] [address] ADM IN M.R.#: [id number] Admission: 01/29/20 Attend Phys: Dandy Goodrich, Discharge: Date of : 53 Date of Service: 01/28/20 1439 Report #: [id number] THIS REPORT FOR: //name// [facility] ED Test Date: 2020-01-28 Test Time: 14:39:10 Pat Name: KALYN SHAH Department: Room: [facility] Gender: M Litigation Manager: : 1955 Requested By: Ian Jones Order Number: [id number] MD: Virgilio Rosen Measurements Intervals [place] Rate: 81 P: 50 IA: 167 QRS: -18 QRSD: 104 T: 68 QT: 382 QTc: 444 Interpretive Statements Sinus rhythm Atrial premature complex Borderline left axis deviation Compared to ECG 09/04/2019 09:38:53 Atrial premature complex(es) now present Inferior Q waves no longer present Electronically Signed On 01-31-2020 11:01:07 CDT by Virgilio Rosen [email or web address] <ELECTRONICALLY SIGNED> By: Virgilio Rosen MD, FAC 01/31/20 1101 1439 1439 Virgilio Rosen MD, FAC /EPI
[2020-01-31 12:13] VITALS: BP 106/81
[2020-01-31 14:07] VITALS: BP 106/81
--- NOTE | 2020-01-31 15:09 | NUR ---
RECEIVED REPORT. ASSUMED CARE OF PT AROUND 0730. PT A&O X4. AM ASSESSMENT AND VITALS COMPLETED CHARTED. SHELF DRIER OPERATOR IN PLACE. MEDS PER EMAR. PT DENIED PAIN OR DISCOMFORT. HAVING BM'S NOW. BP STILL A BIT HIGH BUT STABILIZED. DISCHARGE ORDERS RECEIVED. DISCHARGE COMPLETED DOCUMENTED. DISCHARGE SUMMARY GONE OVER WITH PT, PT COMMUNICATES UNDERSTANDING. ALL BELONGINGS GATHERED AND SENT OUT WITH PT. IV AND SHELF DRIER OPERATOR REMOVED. PT LEFT UNIT IN WC WITH NURSING STAFF. PT LEFT HOSPITAL IN CAR WITH SPOUSE.
== END 2020-01-31 15:00 | disposition home or self-care (01) | DRG 91 ==
LOC: M.ERS 13:58 → M.TBA-ER 18:24 → M.2W 18:24
PROVIDERS: Emergency Medicine Emergency Medical Services; ADMIT Internal Medicine; ATTEND Internal Medicine
DX: G92 Toxic encephalopathy (principal); R65.11 Systemic inflammatory response syndrome (SIRS) of non-infectious origin with acute organ dysfunction; N17.0 Acute kidney failure with tubular necrosis; I16.1 Hypertensive emergency; F41.1 Generalized anxiety disorder; J45.909 Unspecified asthma, uncomplicated; F32.9 Major depressive disorder, single episode, unspecified; M54.89 Other dorsalgia; G89.29 Other chronic pain; F11.21 Opioid dependence, in remission; K44.9 Diaphragmatic hernia without obstruction or gangrene; Z96.659 Presence of unspecified artificial knee joint; E03.9 Hypothyroidism, unspecified; K58.9 Irritable bowel syndrome, unspecified; I16.0 Hypertensive urgency; F41.9 Anxiety disorder, unspecified; K59.00 Constipation, unspecified; T50.915A Adverse effect of multiple unspecified drugs, medicaments and biological substances, initial encounter; Y92.89 Other specified places as the place of occurrence of the external cause; Z85.46 Personal history of malignant neoplasm of prostate; Z87.11 Personal history of peptic ulcer disease; Z79.899 Other long term (current) drug therapy; Z88.5 Allergy status to narcotic agent; Z88.8 Allergy status to other drugs, medicaments and biological substances

== ENCOUNTER 2020-03-01 02:55 | Inpatient (IN) | payer MEDICARE, OTHER ==
[~2020-03-01] VITALS: Ht 182.9 cm; Wt 88.3 kg
[2020-03-01] VITALS (53 sets, daily range): BP systolic 109–224; BP diastolic 57–133
--- NOTE | ~2020-03-01 | CON ---
[address] [address] CONSULTATION Name: KALYN SHAH Room: [address] IN M.R.#: [id number] Admission: 03/01/20 Attend Phys: Marcos Siegel, Discharge: Date of : 53 Report #: [id number] THIS REPORT FOR: //name// cc: YEYO Ortiz family physician/PCP YEYO - Diana family physician/PCP ~ THIS REPORT FOR: //name// CC: YEYO physician/PCP Marcos Siegel DATE OF SERVICE: 03/01/2020 CONSULT REQUESTED BY: Dandy Goodrich MD. INDICATION FOR CONSULTATION: Acute respiratory failure. HISTORY OF PRESENT ILLNESS: This is a 65-year-old gentleman. His past medical history is as mentioned below. This is based on his previous records in this hospital. At this time, the patient was brought to the Emergency Room with altered mental status by the EMS, details regarding how the EMS found the patient not known to me. He was not able to provide any history. He is reported to have had significantly elevated blood pressures, uncontrolled. He also is reported to have been vomiting blood and was agitated and short of breath and required endotracheal intubation. The patient currently is on assist control, 500 tidal volume with FiO2 of 50%. He is oxygenating, however, only 90%. He is well sedated with propofol and fentanyl infusion. The patient is on the ventilator and therefore unable to provide a further history or review of systems. PAST MEDICAL HISTORY: Chronic opiate use, bronchial asthma, gastroesophageal reflux disease, low back pain, hypertension, foot surgery, hiatal hernia, knee surgery, peptic ulcer disease, prostatectomy, irritable bowel syndrome, orthostatic hypotension, insomnia, hypothyroidism. SOCIAL HISTORY: There is a longstanding history of opiate use. There is no known history of smoking or excessive ethanol use. CURRENT MEDICATIONS: List in [facility] reviewed. HOME MEDICATIONS: The list from previous records are in [facility], these are reviewed. He is not able to provide new list of home medications. ALLERGIES: HE IS REPORTED TO HAVE AN ADVERSE REACTION OR ALLERGY TO MORPHINE WELL NSAIDS, however, has been on other opiates, in fact he is taking [place] [address] CONSULTATION Name: KALYN SHAH Room: [address] IN [facility]#: [id number] Admission: 03/01/20 Attend Phys: Marcos Siegel, Discharge: Date of : 53 Report #: [id number] FAMILY HISTORY: There is no known pertinent family history. PHYSICAL EXAMINATION: GENERAL: He is well sedated at around RASS -2 with propofol and fentanyl infusion. VITAL SIGNS: His tidal volume of 500 with an AC rate of 16. He is not overbreathing the ventilator. He is comfortable; however, with 50% FiO2, his O2 saturation is 90. He has pulse of 95 and blood pressure of 200/100. He is on a Cardene infusion, which is being titrated. He is afebrile with a temperature of 36.3. HEENT: Head is normocephalic and atraumatic. Endotracheal tube is in good position. NECK: Does not show raised JVP, asymmetry, mass or lymph nodes. CHEST: Symmetrical expansion on inspection and palpation. On auscultation, chest is clear. HEART: Regular. There is no murmur. ABDOMEN: Soft and nontender. EXTREMITIES: Lower extremities show no edema, no calf tenderness. SKIN: Dry and intact. NEUROLOGICAL: Moves all extremities to painful stimuli. No focal deficit identified. LABORATORY DATA: The patient's chest x-ray is reviewed. There are some chronic changes. I do not see any acute findings. The patient did have a CT head last night as well, which does not show significant abnormalities. The patient's lab work including arterial blood gas, which does show acute hypercarbic respiratory failure. The patient had received sedation for that. CBC as well as chemistries in [facility] reviewed. Coagulation studies in [facility] reviewed. His COVID-19 antigen was negative. Toxicology screen was negative. Urinalysis is in [facility] reviewed. ASSESSMENT AND PLAN: 1. Acute hypercarbic respiratory failure. The patient uses opiates at home and did require sedation for severe agitation, which would explain hypercarbia, however, I am not able to fully explain why his O2 saturation is only 90% on 50% FiO2. At this time, I would increase his tidal volume to 600, which will be about 8 mL per kg. If his O2 saturation remains in the current range, then I will increase the PEEP as well. We will continue with propofol and fentanyl infusions. I ordered 2 doses of Solu-Medrol as well as nebulized bronchodilators. I would like to obtain an echo. I also ordered a D-dimer. If the patient's O2 saturation does not improve, then I will consider obtaining a CTA chest. 2. Hematemesis/vomiting/suspected aspiration. I agree with Rocio. We will see if we can obtain cultures. The GI service is on the case and I understand that they are planning an EGD, which I agree with. I will go ahead and [place] [address] CONSULTATION Name: KALYN SHAH Room: [address]#: [id number] Admission: 03/01/20 Attend Phys: Marcos Siegel, Discharge: Date of : 53 Report #: [id number] 3. Chronic opiate use/back pain, on a fentanyl drip for now. 4. Adrenal insufficiency. This is mentioned on the records; however, I do not see any steroid on his home medication list. For now, I did give him 2 doses of Solu-Medrol. We will follow and then assess further. 5. Deep venous thrombosis prophylaxis. SCDs, we will defer to GI regarding whether he is administered prophylactic dose Lovenox. The patient is critically ill at this time. Total time spent providing critical care to this patient today exceeds 45 minutes. By: 1323 [id number] Lechuga MD /nt
--- NOTE | ~2020-03-01 | CON ---
[address] [address] CONSULTATION Name: KALYN SHAH Room: [address] IN .R.#: [id number] Admission: 03/01/20 Attend Phys: Marcos Siegel, Discharge: Date of : 53 Report #: [id number] THIS REPORT FOR: //name// cc: YEYO Ortiz family physician/PCP YEYO - No family physician/PCP ~ THIS REPORT FOR: //name// CC: YEYO physician/PCP Marcos Siegel DATE OF SERVICE: 03/03/2020 REQUESTING PHYSICIAN: Jemal Hicks DO. ____ PHYSICIAN: Dr. Lechuga. REASON FOR CONSULTATION: Acute kidney injury. HISTORY OF PRESENT ILLNESS: The patient is a 65-year-old white male admitted to the hospital on 03/01/2020 with altered mental status. He was brought in by family members. Apparently, he had multiple presentations similar to this one in the past. It is not clear what causes him to become altered. He was unresponsive. He also had some coffee-ground emesis. He was intubated for airway protection in the Emergency Room, then later on was extubated. He still nonverbal, does not follow commands, does not speak, but he is awake. His creatinine on admission was 1.0, went up to 2.0 yesterday and I was consulted, today it is 1.6. PAST MEDICAL HISTORY: 1. Significant for multiple episodes of altered mental status as I mentioned earlier. 2. History of acute kidney injuries in the past. 3. Hypertension. 4. History of drug overdose. 5. Gastric ulcer. 6. Oliguria syndrome. 7. History of pneumonia. FAMILY HISTORY: Unknown. SOCIAL HISTORY: Does not smoke cigarettes, does not drink alcohol. MEDICATIONS: Prior to admission reviewed. He was on levothyroxine, losartan, albuterol, Nexium, Nubeqa, and hydrocodone. REVIEW OF SYSTEMS: Unobtainable because he does [place] communicate with [place] [address] CONSULTATION Name: KALYN SHAH Room: [address] IN [facility]#: [id number] Admission: 03/01/20 Attend Phys: Marcos Siegel, Discharge: Date of : 53 Report #: [id number] nonverbal. PHYSICAL EXAMINATION: GENERAL: He is awake, but nonverbal, does not follow commands. VITAL SIGNS: His blood pressure 172/94, heart rate 109, respiratory rate is 20, and temperature 37.4. HEENT: Pupils are round. NECK: Fatty. LUNGS: Air movement is decreased because he is not making an effort to take a deep breath. CARDIOVASCULAR: Reveals regular rate. His tones are distant. ABDOMEN: Soft. EXTREMITIES: Lower extremities without edema. LABORATORY DATA: Report revealed serum sodium of 143, potassium 4.0, chloride 107, carbon dioxide 24, BUN 25, and creatinine 1.6. Urinalysis positive for 3+ blood, 1-9 bacteria. His CBC revealed elevated white count of 26.3 yesterday, today is down to 17.3. COVID-19 test was performed and was negative. His CT scans were negative, chest CT, abdominal CT, and head CT. Abdominal CT suggest mild inflammatory changes along the pancreas, but otherwise no problems. His chest CT showed mild atelectasis, but otherwise unremarkable. His head CT showed no acute abnormalities. ASSESSMENT: 1. Acute kidney injury, unclear etiology, maybe it is just a reaction to the stress that his body is going through. 2. Altered mental status. Again, unclear etiology. 3. Hypertension. PLAN: 1. Bradford catheter is in. 2. Continue with gentle hydration. 3. I would like to order ammonia level just to make sure he does not have any hepatic encephalopathy. We will follow with you closely. By: 1043 1149Alexsamantha Nascimento MD /rula
[~2020-03-01 02:55] MED LIST changes: +METHOCARBAMOL750 MG PO; +NORCO 10-325 T1 EACH PO; +NUBEQA300 MG PO; +ZOLOFT100 MG PO
[2020-03-01 03:44] LABS: CALCIUM 8.9 mg/dL (8.5-10.1); CREATININE 1.2 mg/dL (0.6-1.3); POTASSIUM 4.6 mmol/L (3.5-5.1)
[2020-03-01 03:48] LABS: HEMOGLOBIN 12.4 gm/dL (14.0-18.0); MPV 9.4 fl. (7.2-11.1)
[2020-03-01 03:49] LABS: HEMATOCRIT 36.9 % (42.0-52.0); MCH 28.4 pg (26.0-34.0); MCHC 33.7 g/dL (28.0-37.0); MCV 84.1 fL (80.0-100.0); NUCLEATED RBCS 0 /100WBC; PLATELET COUNT* 321 thou/uL (150-400); RBC 4.38 mil/uL (4.50-6.00); RDW-CV 13.5 % (10.5-14.5); WBC 10.4 thou/uL (4.0-11.0)
[2020-03-01 03:53] LABS: APTT 21.4 Seconds (25.0-31.3); PROTIME 10.7 Seconds (9.20-11.50)
[2020-03-01 03:56] LABS: MAGNESIUM 2.4 mg/dL (1.8-2.4); TOTAL BILIRUBIN 0.2 mg/dL (<0.1-1.0); TOTAL PROTEIN 7.4 g/dL (6.4-8.2)
[2020-03-01 04:11] LABS: BE -3.1 mmol/L (-2 to +3); PCO2 41.2 mmHg (35.0-45.0); PO2 79.4 mmHg (75.0-100.0); pH 7.351 (7.340-7.450)
[2020-03-01 05:20] LABS: ABSOLUTE EOSINOPHILS 0.4 thou/uL (0.0-0.7); ABSOLUTE LYMPHOCYTES 2.1 thou/uL (0.8-5.3); ABSOLUTE MONOCYTES 0.7 thou/uL (0.0-1.2); ABSOLUTE NEUTROPHILS 7.2 thou/uL (1.6-8.1); LARGE PLATELETS RARE; PLATELET ESTIMATE ADEQUATE
[2020-03-01 05:21] LABS: ANISOCYTOSIS 1+; POIKILOCYTOSIS 1+
[2020-03-01 06:49] LABS: URINE BILIRUBIN NEGATIVE (Negative); URINE BLOOD 3+ (Negative); URINE CLARITY CLEAR; URINE COLOR YELLOW; URINE GLUCOSE-RANDOM NEGATIVE (Negative); URINE KETONES NEGATIVE (Negative); URINE LEUKOCYTES-REFLEX NEGATIVE (Negative); URINE NITRITE-REFLEX NEGATIVE (Negative); URINE PROTEIN NEGATIVE (Negative); URINE SPECIFIC GRAVITY 1.025 (1.005-1.030); URINE UROBILINOGEN 0.2 E.U./dl (0.2-1.0)
[2020-03-01 06:56] LABS: AMP/METHAMP Negative (Negative); BARBITURATES Negative (Negative); BENZODIAZEPINES Negative (Negative); COCAINE Negative (Negative); METHADONE Negative (Negative); OPIATES Negative (Negative); PCP Negative (Negative); THC Negative (Negative)
[2020-03-01 06:59] LABS: BACTERIA-REFLEX 1-9 Few /HPF (None Seen); CASTS None Seen /LPF (None Seen); CRYSTALS None Seen /LPF (None Seen); MUCUS 0-3 Light strn/LPF (None Seen); SQUAMOUS 0-3 Few /LPF (0-3); URINE WBC-REFLEX 0-5 Rare /HPF (0-5)
[2020-03-01 08:06] LABS: BE -3.7 mmol/L (-2 to +3); PCO2 46.3 mmHg (35.0-45.0); pH 7.307 (7.340-7.450)
[2020-03-01 08:09] LABS: PO2 350.3 mmHg (75.0-100.0)
--- NOTE | 2020-03-01 08:25 | EKG ---
[place] [address] ELECTROCARDIOGRAM REPORT Name: KALYN SHAH Room: [place] [address] ADM IN M.R.#: [id number] Admission: 03/01/20 Attend Phys: Marcos Mckinney Discharge: Date of : 53 Date of Service: 03/01/20 0348 Report #: [id number] THIS REPORT FOR: //name// [facility] ED Test Date: 2020-03-01 Test Time: 03:48:07 Pat Name: KALYN SHAH Department: Room: [facility] Gender: M Belt Conveyor Drier: JANICE : 1955 Requested By: Indigo Zurita Order Number: [id number] MD: Kalyn West Measurements Intervals [place] Rate: 99 P: 43 VT: 194 QRS: -19 QRSD: 108 T: 48 QT: 363 QTc: 466 Interpretive Statements Sinus rhythm Borderline left axis deviation Compared to ECG 01/28/2020 14:39:10 Atrial premature complex(es) no longer present Electronically Signed On 03-01-2020 8:25:41 CDT by Kalyn West [email or web address] <ELECTRONICALLY SIGNED> By: Kalyn West MD, [facility] 03/01/20 0825 0348 0348 Kalyn West MD, [facility] /EPI
[2020-03-01 13:57] LABS: ABSOLUTE BASOPHILS 0.1 thou/uL (0.0-0.2); ABSOLUTE EOSINOPHILS 0.2 thou/uL (0.0-0.7); ABSOLUTE LYMPHOCYTES 0.8 thou/uL (0.8-5.3); ABSOLUTE MONOCYTES 0.6 thou/uL (0.0-1.2); BASOPHILS 0.9 %; EOSINOPHILS 1.8 %; HEMATOCRIT 33.8 % (42.0-52.0); HEMOGLOBIN 11.6 gm/dL (14.0-18.0); LYMPHOCYTES 9.5 %; MCHC 34.2 g/dL (28.0-37.0); MCV 84.8 fL (80.0-100.0); MPV 8.6 fl. (7.2-11.1); NUCLEATED RBCS 0 /100WBC; PLATELET COUNT* 305 thou/uL (150-400); POLYS 80.8 %; RBC 3.98 mil/uL (4.50-6.00); RDW-CV 13.6 % (10.5-14.5); WBC 8.6 thou/uL (4.0-11.0)
[2020-03-01 14:12] LABS: CALCIUM 8.7 mg/dL (8.5-10.1); MAGNESIUM 2.1 mg/dL (1.8-2.4)
--- NOTE | 2020-03-01 16:19 | 2DMMODE ---
[place] [address] 2 D/M-MODE ECHOCARDIOGRAM Name: [facility] [id number] Admission: 03/01/20 Attend Phys: Marcos Mckinney Discharge: Date of : 53 Date of Service: 03/01/20 1618 Report #: [id number] THIS REPORT FOR: cc: FAM - No family physician/PCP FAM - No family physician/PCP Kalyn West MD [facility] ~ APPROVED REPORT Study performed: 03/01/2020 13:08:46 EXAM: Comprehensive 2D, Doppler, and color-flow Echocardiogram Patient Location: In-Patient Room #: [facility] Status: routine BSA: 2.16 HR: 82 bpm BP: 116/60 mmHg Rhythm: NSR Other Information Study Quality: Fair Technically limited study due to patient on ventilator, off axis imaging. Indications Dyspnea 2D Dimensions LVOT Diam: 19.96 (18-24mm) Aortic Root: 35.04 mm Aortic Valve AoV Peak Vasquez.: 1.45 m/s AO Peak Gr.: 8.46 mmHg AO Mean Gr.: 5.50 mmHg AO V2 VTI: 28.23 cm Pulmonary Valve PV Peak Vasquez.: 1.16 m/s PV Peak Gr.: 5.39 mmHg Left Ventricle The left ventricle is normal size. There is normal LV segmental wall motion. Mild concentric left ventricular hypertrophy. Left ventricular systolic function is normal. The left ventricular [address] [address] 2 D/M-MODE ECHOCARDIOGRAM Name: KALYN SHAH Room: [address] IN M.R.#: [id number] Admission: 03/01/20 Attend Phys: Marcos Mckinney Discharge: Date of : 53 Date of Service: 03/01/20 1618 Report #: [id number] ejection fraction is within the normal range. LVEF is >70%. This study is not technically sufficient to allow evaluation of the LV diastolic function. Right Ventricle The right ventricle is normal size. The right ventricular systolic function is normal. Atria The left atrium size is normal. The right atrium size is normal. Aortic Valve The aortic valve is normal in structure. No aortic regurgitation is present. There is no aortic valvular stenosis. Mitral Valve The mitral valve is normal in structure. There is no mitral valve regurgitation noted. No evidence of mitral valve stenosis. Tricuspid Valve The tricuspid valve is normal in structure. Unable to assess PA pressure. Trace tricuspid regurgitation. Pulmonic Valve The pulmonary valve is normal in structure. There is no pulmonic valvular regurgitation. Great Vessels The aortic root is normal in size. IVC is normal in size and collapses >50% with inspiration. Pericardium There is no pericardial effusion. <Conclusion> Left ventricular systolic function is normal. The left ventricular ejection fraction is within the normal range. <ELECTRONICALLY SIGNED> By: Kalyn West MD, FACC 03/01/20 1618 17 17 Kalyn West MD, FACC /INF
[2020-03-01 17:43] LABS: BE -2.4 mmol/L (-2 to +3); PCO2 35.1 mmHg (35.0-45.0); pH 7.408 (7.340-7.450)
[2020-03-01 17:45] LABS: PO2 131.2 mmHg (75.0-100.0)
[2020-03-02] VITALS (78 sets, daily range): BP systolic 119–190; BP diastolic 64–112
[2020-03-02 05:15] LABS: ABSOLUTE LYMPHOCYTES 0.4 thou/uL (0.8-5.3); ABSOLUTE MONOCYTES 0.1 thou/uL (0.0-1.2); ABSOLUTE NEUTROPHILS 9.8 thou/uL (1.6-8.1); HEMATOCRIT 37.6 % (42.0-52.0); HEMOGLOBIN 12.8 gm/dL (14.0-18.0); LYMPHOCYTES 3.8 %; MCH 28.8 pg (26.0-34.0); MCV 84.8 fL (80.0-100.0); MONOCYTES 0.9 %; MPV 8.8 fl. (7.2-11.1); NUCLEATED RBCS 0 /100WBC; POLYS 95.3 %; RBC 4.44 mil/uL (4.50-6.00); RDW-CV 14.1 % (10.5-14.5); WBC 10.3 thou/uL (4.0-11.0)
[2020-03-02 05:19] LABS: PLATELET COUNT* 418 thou/uL (150-400)
[2020-03-02 05:42] LABS: PHOSPHORUS* 4.7 mg/dL (2.5-4.9)
[2020-03-02 05:45] LABS: ALBUMIN 3.8 g/dL (3.4-5.0); CALCIUM 9.1 mg/dL (8.5-10.1); CREATININE 1.6 mg/dL (0.6-1.3); MAGNESIUM 2.2 mg/dL (1.8-2.4); POTASSIUM 4.3 mmol/L (3.5-5.1); TOTAL BILIRUBIN 0.2 mg/dL (<0.1-1.0); TOTAL PROTEIN 7.4 g/dL (6.4-8.2)
[2020-03-02 16:44] LABS: HEMATOCRIT 33.7 % (42.0-52.0); HEMOGLOBIN 11.3 gm/dL (14.0-18.0); MCH 28.6 pg (26.0-34.0); MCHC 33.6 g/dL (28.0-37.0); MPV 8.6 fl. (7.2-11.1); RBC 3.96 mil/uL (4.50-6.00); RDW-CV 13.8 % (10.5-14.5)
[2020-03-02 16:52] LABS: CALCIUM 9.1 mg/dL (8.5-10.1); POTASSIUM 4.2 mmol/L (3.5-5.1)
[2020-03-02 16:54] LABS: WBC 26.3 thou/uL (4.0-11.0)
[2020-03-03] VITALS (57 sets, daily range): BP systolic 139–181; BP diastolic 72–119
[2020-03-03 05:30] LABS: ABSOLUTE LYMPHOCYTES 1.1 thou/uL (0.8-5.3); ABSOLUTE MONOCYTES 1.3 thou/uL (0.0-1.2); ABSOLUTE NEUTROPHILS 14.9 thou/uL (1.6-8.1); BASOPHILS 0.2 %; HEMATOCRIT 33.2 % (42.0-52.0); HEMOGLOBIN 11.5 gm/dL (14.0-18.0); LYMPHOCYTES 6.4 %; MCH 29.4 pg (26.0-34.0); MCHC 34.7 g/dL (28.0-37.0); MCV 84.6 fL (80.0-100.0); MONOCYTES 7.4 %; MPV 9.2 fl. (7.2-11.1); NUCLEATED RBCS 0 /100WBC; PLATELET COUNT* 372 thou/uL (150-400); RBC 3.92 mil/uL (4.50-6.00); RDW-CV 13.9 % (10.5-14.5); WBC 17.3 thou/uL (4.0-11.0)
[2020-03-03 05:47] LABS: PHOSPHORUS* 3.6 mg/dL (2.5-4.9)
[2020-03-03 06:19] LABS: ALBUMIN 3.7 g/dL (3.4-5.0); CALCIUM 8.9 mg/dL (8.5-10.1); CREATININE 1.6 mg/dL (0.6-1.3); MAGNESIUM 1.9 mg/dL (1.8-2.4); TOTAL BILIRUBIN 0.2 mg/dL (<0.1-1.0); TOTAL PROTEIN 6.7 g/dL (6.4-8.2)
--- NOTE | 2020-03-03 21:43 | CON ---
[address] [address] CONSULTATION Name: KALYN SHAH Room: [address] IN M.R.#: [id number] Admission: 03/01/20 Attend Phys: Marcos Siegel, Discharge: Date of : 53 Report #: [id number] THIS REPORT FOR: //name// cc: YEYO - No family physician/PCP YEYO - No family physician/PCP ~ THIS REPORT FOR: //name// CC: [facility] physician/PCP Marcos Siegel DICTATED BY: Felicia SPENCER DATE OF SERVICE: 03/01/2020 PRIMARY CARE PHYSICIAN: Unknown. Please note at the time of this dictation, the patient was seen and physically examined by myself. REASON FOR CONSULTATION: Hematemesis. HISTORY OF PRESENT ILLNESS: This is a 65-year-old male who was brought in by EMS after his had called them for his altered mental status. The patient was having some nausea and had vomited up some coffee-ground emesis and because of his ongoing altered mental status, he is on chronic high-dose narcotics apparently for some chronic pain issues. It is unclear how long his altered mental status has been going on. The patient is currently on the ventilator and sedated and unable to obtain any history. All the history is obtained from the chart in which the had provided to them at the time of admission. The patient has had an EGD with us in [address] 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 He also underwent a colonoscopy in 2018. He had a very poor prep, noting some diverticulosis and was to repeat in 1 year, but never did. ALLERGIES: NONSTEROIDALS, MORPHINE. MEDICATIONS: From home, methocarbamol, Eden, Zoloft, ____, MiraLax, ____, Nexium, Capsaicin, Norvasc, Ventolin and Cozaar. PAST MEDICAL HISTORY: Hypothyroidism, insomnia, chronic generalized anxiety disorder, chronic opioid use, history of prostate cancer, adrenal insufficiency, irritable bowel syndrome, history of prostate cancer, history of stomach ulcers, TIAs, hiatal hernia, asthma, toxic encephalopathy ongoing. PAST SURGICAL HISTORY: Prostatectomy, right foot fracture, left foot surgery, [place] [address] CONSULTATION Name: KALYN SHAH Room: [address] IN [facility]#: [id number] Admission: 03/01/20 Attend Phys: Marcos Siegel, Discharge: Date of : 53 Report #: [id number] FAMILY HISTORY: Noncontributory. SOCIAL HISTORY: Noncontributory. Lives with his . REVIEW OF SYSTEMS: Twelve-point review of systems is essentially negative except what is mentioned in the HPI. PHYSICAL EXAMINATION: VITAL SIGNS: Temperature 36.3, pulse 95, respirations 18, blood pressure 224/118. HEART: Regular rate and rhythm. LUNGS: Diminished. ABDOMEN: Soft, positive bowel sounds in all 4 quadrants with no masses or tenderness noted. LABORATORY DATA: Hemoglobin 12.9, white count 10.4, platelets 321. BUN is 28, creatinine 1.2. His GFR is 61. PT 10.7, INR is 1. IMPRESSION: 1. Hematemesis. 2. Altered mental status. 3. History of Rome's. 4. History of Deshler syndrome. 5. Chronic opioid use. PLAN: 1. EGD today with Dr. Grey. 2. Continue Protonix. 3. Further recommendations to be made once the procedure has been performed. Thank you for allowing us to participate in this patient's care. Please do not hesitate to call with any questions in regard to this consult. <ELECTRONICALLY SIGNED> By: Mario Grey DO 03/03/20 2143 1153 1216Mario Grey DO /nt
[2020-03-04] VITALS (36 sets, daily range): BP systolic 144–183; BP diastolic 72–105
[2020-03-04 04:23] LABS: ALBUMIN 3.5 g/dL (3.4-5.0); CREATININE 1.5 mg/dL (0.6-1.3); POTASSIUM 3.6 mmol/L (3.5-5.1); TOTAL BILIRUBIN 0.3 mg/dL (<0.1-1.0); TOTAL PROTEIN 7.1 g/dL (6.4-8.2)
[2020-03-05] VITALS (22 sets, daily range): BP systolic 145–193; BP diastolic 72–115
[2020-03-05 04:28] LABS: HEMATOCRIT 39.1 % (42.0-52.0); HEMOGLOBIN 13.2 gm/dL (14.0-18.0); MCH 28.3 pg (26.0-34.0); MCHC 33.6 g/dL (28.0-37.0); MCV 84.2 fL (80.0-100.0); MPV 8.8 fl. (7.2-11.1); NUCLEATED RBCS 0 /100WBC; RBC 4.65 mil/uL (4.50-6.00); RDW-CV 14.1 % (10.5-14.5); WBC 13.4 thou/uL (4.0-11.0)
[2020-03-05 04:40] LABS: PLATELET COUNT* 449 thou/uL (150-400)
[2020-03-05 04:49] LABS: ALBUMIN 3.8 g/dL (3.4-5.0); CALCIUM 9.4 mg/dL (8.5-10.1); CREATININE 1.5 mg/dL (0.6-1.3); POTASSIUM 3.7 mmol/L (3.5-5.1); TOTAL BILIRUBIN 0.3 mg/dL (<0.1-1.0); TOTAL PROTEIN 7.6 g/dL (6.4-8.2)
[2020-03-05 07:44] LABS: ABSOLUTE LYMPHOCYTES 0.9 thou/uL (0.8-5.3); ABSOLUTE MONOCYTES 0.8 thou/uL (0.0-1.2); ABSOLUTE NEUTROPHILS 11.7 thou/uL (1.6-8.1); PLATELET ESTIMATE ADEQUATE
[2020-03-06] VITALS (23 sets, daily range): BP systolic 97–172; BP diastolic 61–106
[2020-03-06 02:05] LABS: HIV-1/HIV-2 ANTIBODY Non Reactive (Non Reactive)
[2020-03-06 09:07] LABS: ABSOLUTE BASOPHILS 0.1 thou/uL (0.0-0.2); ABSOLUTE EOSINOPHILS 0.1 thou/uL (0.0-0.7); ABSOLUTE LYMPHOCYTES 1.3 thou/uL (0.8-5.3); ABSOLUTE MONOCYTES 1.2 thou/uL (0.0-1.2); ABSOLUTE NEUTROPHILS 9.4 thou/uL (1.6-8.1); BASOPHILS 0.5 %; EOSINOPHILS 1.1 %; HEMATOCRIT 38.2 % (42.0-52.0); HEMOGLOBIN 12.9 gm/dL (14.0-18.0); LYMPHOCYTES 10.7 %; MCH 28.5 pg (26.0-34.0); MCHC 33.7 g/dL (28.0-37.0); MCV 84.5 fL (80.0-100.0); MONOCYTES 9.8 %; MPV 8.2 fl. (7.2-11.1); NUCLEATED RBCS 0 /100WBC; POLYS 77.9 %; RBC 4.53 mil/uL (4.50-6.00); RDW-CV 13.5 % (10.5-14.5); WBC 12.1 thou/uL (4.0-11.0)
[2020-03-06 09:16] LABS: PLATELET COUNT* 333 thou/uL (150-400)
[2020-03-06 09:20] LABS: ALBUMIN 3.5 g/dL (3.4-5.0); CALCIUM 8.9 mg/dL (8.5-10.1); CREATININE 1.3 mg/dL (0.6-1.3); TOTAL BILIRUBIN 0.4 mg/dL (<0.1-1.0); TOTAL PROTEIN 6.9 g/dL (6.4-8.2)
[2020-03-06 09:22] LABS: POTASSIUM 2.9 mmol/L (3.5-5.1)
--- NOTE | 2020-03-06 09:59 | EKG ---
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: HERIBERTO : 1955 Requested By: Marcos Siegel Order Number: [id number] Zaria MD: Virgilio Rosen Measurements Intervals [place] Rate: 139 P: UT: QRS: 13 QRSD: 99 T: 45 QT: 311 QTc: 473 Interpretive Statements Atrial fibrillation with a tachycardic ventricular response Borderline low voltage, extremity leads Borderline ST depression, diffuse leads Compared to ECG 03/01/2020 03:48:07 ST (T wave) deviation now present Sinus rhythm no longer present Electronically Signed On 03-06-2020 9:59:44 CDT by Virgilio Rosen [email or web address] <ELECTRONICALLY SIGNED> By: Virgiloi Rosen MD, FAC 03/06/20 0959 8 8 Virgilio Rosen MD, [facility] /EPI
[2020-03-07] VITALS (8 sets, daily range): BP systolic 105–182; BP diastolic 57–103
[2020-03-07 05:44] LABS: ABSOLUTE EOSINOPHILS 0.6 thou/uL (0.0-0.7); ABSOLUTE LYMPHOCYTES 1.6 thou/uL (0.8-5.3); ABSOLUTE MONOCYTES 1.1 thou/uL (0.0-1.2); ABSOLUTE NEUTROPHILS 7.3 thou/uL (1.6-8.1); BASOPHILS 0.1 %; EOSINOPHILS 5.4 %; HEMATOCRIT 37.3 % (42.0-52.0); HEMOGLOBIN 12.8 gm/dL (14.0-18.0); LYMPHOCYTES 14.9 %; MCH 28.7 pg (26.0-34.0); MCHC 34.4 g/dL (28.0-37.0); MCV 83.3 fL (80.0-100.0); MONOCYTES 10.6 %; MPV 8.8 fl. (7.2-11.1); NUCLEATED RBCS 0 /100WBC; PLATELET COUNT* 282 thou/uL (150-400); RBC 4.47 mil/uL (4.50-6.00); RDW-CV 13.2 % (10.5-14.5); WBC 10.5 thou/uL (4.0-11.0)
[2020-03-07 06:04] LABS: ALBUMIN 3.1 g/dL (3.4-5.0); CALCIUM 8.6 mg/dL (8.5-10.1); CREATININE 1.2 mg/dL (0.6-1.3); POTASSIUM 3.7 mmol/L (3.5-5.1); TOTAL BILIRUBIN 0.4 mg/dL (<0.1-1.0); TOTAL PROTEIN 6.3 g/dL (6.4-8.2)
[2020-03-07 06:30] LABS: PHOSPHORUS* 3.5 mg/dL (2.5-4.9)
--- NOTE | 2020-03-07 16:28 | EKG ---
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 : 1955 Requested By: Donna Sun Order Number: [id number] Zaria MD: Virgilio Rosen Measurements Intervals [place] Rate: 75 P: 46 NM: 158 QRS: -4 QRSD: 104 T: 57 QT: 434 QTc: 485 Interpretive Statements Sinus rhythm Probable left atrial enlargement Borderline prolonged QT interval Compared to ECG 03/06/2020 01:39:52 Atrial fibrillation no longer present ST (T wave) deviation no longer present Electronically Signed On 03-07-2020 16:28:11 CDT by Virgilio Rosen [email or web address] <ELECTRONICALLY SIGNED> By: Virgilio Rosen MD, [facility] 03/07/20 1628 5 5 Virgilio Rosen MD, [facility] /EPI
[2020-03-08 04:00] VITALS: BP 159/104
[2020-03-08 05:09] LABS: ABSOLUTE EOSINOPHILS 0.6 thou/uL (0.0-0.7); ABSOLUTE LYMPHOCYTES 1.4 thou/uL (0.8-5.3); ABSOLUTE NEUTROPHILS 8.5 thou/uL (1.6-8.1); BASOPHILS 0.2 %; EOSINOPHILS 5.4 %; HEMATOCRIT 40.8 % (42.0-52.0); LYMPHOCYTES 12.3 %; MCH 28.4 pg (26.0-34.0); MCHC 34.3 g/dL (28.0-37.0); MCV 82.7 fL (80.0-100.0); MONOCYTES 8.7 %; MPV 8.7 fl. (7.2-11.1); NUCLEATED RBCS 0 /100WBC; PLATELET COUNT* 317 thou/uL (150-400); POLYS 73.4 %; RBC 4.93 mil/uL (4.50-6.00); RDW-CV 13.4 % (10.5-14.5); WBC 11.5 thou/uL (4.0-11.0)
[2020-03-08 05:46] LABS: ALBUMIN 3.3 g/dL (3.4-5.0); CALCIUM 8.8 mg/dL (8.5-10.1); CREATININE 1.1 mg/dL (0.6-1.3); POTASSIUM 3.7 mmol/L (3.5-5.1); TOTAL BILIRUBIN 0.4 mg/dL (<0.1-1.0); TOTAL PROTEIN 6.7 g/dL (6.4-8.2)
[2020-03-08 08:00] VITALS: BP 145/92
[2020-03-08 08:04] VITALS: BP 159/104
[2020-03-08 11:44] VITALS: BP 156/99
--- NOTE | 2020-03-08 12:08 | CON ---
[address] [address] CONSULTATION Name: KALYN SHAH Room: [address] IN .R.#: [id number] Admission: 03/01/20 Attend Phys: Marcos Siegel, Discharge: Date of : 53 Report #: [id number] THIS REPORT FOR: //name// cc: YEYO Ortiz family physician/PCP YEYO Ortiz family physician/PCP ~ THIS REPORT FOR: //name// CC: YEYO physician/PCP Marcos Siegel DATE OF SERVICE: 03/01/2020 HISTORY OF PRESENT ILLNESS: This is a 65-year-old male patient who was evaluated by me for altered mental status. The patient is presently on propofol. He is intubated and he cannot provide any history. I talked to the nurses and they indicated that the patient was pretty agitated. I had seen this patient in the past and I reviewed those records. We have extensive workup in this patient in the past and we have never found any cause for his symptoms. He does have pain and he takes medication, does not think that he used to take it properly. REVIEW OF SYSTEMS: Positive for gastric ulcer problem, common bile duct dilatation, aspiration pneumonia, and UTI. He has multiple problems before. He has a history of hypothyroidism, insomnia, GERD, chronic opioid use polypharmacy, prostate cancer, adrenal insufficiency, orthostatic hypotension, irritable bowel syndrome, prostatectomy, peptic ulcer disease, stomach ulcer, TIAs, total knee replacement, left foot surgery, hiatal hernia, and chronic back pain. This was some of his 14-point review of system. PAST MEDICAL HISTORY: Positive for similar episodes in the past for which no cause was found. FAMILY HISTORY: Noncontributory. SOCIAL HISTORY: The patient apparently does not drink any alcohol. PHYSICAL EXAMINATION: The patient is completely sedated. No examination is possible. He has no reflexes and no movement. He is intubated. He is moderately well-built individual. Vital Signs: Blood pressure is 161/92, respirations 16, and pulse is 88. LABORATORY DATA: Indicated white count is normal. He did have a CT scan of the head, which was reviewed and showed no acute process. IMPRESSION AND PLAN: I am not sure what the etiology of the patient's symptom is. We have never found any etiology for that. [place] [address] CONSULTATION Name: KALYN SHAH Room: [address] IN [facility]#: [id number] Admission: 03/01/20 Attend Phys: Marcos Siegel, Discharge: Date of : 53 Report #: [id number] give him a trial with anticonvulsant and I will consider that after EEG is done which I ordered. We can try gabapentin, which may help his pain also or we may try Depakote or Lamictal, which may help his behavior problem. Thank you very much for this referral. <ELECTRONICALLY SIGNED> By: Hood Eddy MD 03/08/20 1208 1927 [id number] Eddy MD /nt
--- NOTE | 2020-03-08 12:08 | EEG ---
[address] [address] EEG STUDY REPORT Name: PABLOAKLYNTIN Room: [address] IN M.R.#: [id number] Admission: 03/01/20 Attend Phys: Marcos Siegel, Discharge: Date of : 53 Report #: [id number] THIS REPORT FOR: //name// CC: YEYO physician/PCP Marcos Siegel DATE OF SERVICE: 03/04/2020 This patient is being evaluated for altered mental status. EEG was done by placing the electrode by standard 10-20 system of electrode placement. Both referential and sequential montages were used for recording. Background activity is only about 4-5 Hz. It continues the same throughout the record. Photic stimulation is unremarkable. No active seizure activity was noticed. IMPRESSION: This is a severely abnormal EEG because it is disorganized and poorly formed. That is a nonspecific finding, which can occur with encephalopathy, effect of psychotropic medication, dementia, etc. Clinical correlation is recommended. <ELECTRONICALLY SIGNED> By: Hood Eddy MD 03/08/20 1208 1522 1525Hood Eddy MD /nt
--- NOTE | 2020-03-08 12:08 | EMG ---
[place] [address] EMG NERVE CONDUCTION REPORT Name: KALYN SHAH Room: [address] IN M.R.#: [id number] Admission: 03/01/20 Attend Phys: Marcos Siegel, Discharge: Date of : 53 Report #: [id number] THIS REPORT FOR: //name// CC: YEYO physician/PCP Marcos Siegel DATE OF SERVICE: 03/02/2020 This patient's EEG is being done for altered mental status. EEG was done by placing the electrode by standard 10-20 system of electrode placement. Both referential and sequential montages were done. Background activity in this patient's EEG is very difficult to determine because of low voltage. Background activity does appear to be about 6 Hz and 10 microvolts. Photic stimulation is unremarkable. No active epileptiform activity was noted. IMPRESSION: This is a severely abnormal EEG because it is very disorganized and poorly formed. That is a nonspecific abnormality, which can occur with dementia, encephalopathy, effect of psychotropic medication, postictal state, etc. Thank you very much for this referral. <ELECTRONICALLY SIGNED> By: Hood Eddy MD 03/08/20 1208 1409 1414Pbrenda Eddy MD /nt
[2020-03-08 14:16] LABS: AMP/METHAMP Negative (Negative); BARBITURATES Negative (Negative); BENZODIAZEPINES Negative (Negative); COCAINE Negative (Negative); METHADONE Negative (Negative); OPIATES Negative (Negative); PCP Negative (Negative); THC Negative (Negative)
--- NOTE | 2020-03-08 15:22 | EKG ---
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: : 1955 Requested By: Donna Sun Order Number: [id number] Zaria MD: Virgilio Rosen Measurements Intervals [place] Rate: 85 P: 61 AR: 155 QRS: 5 QRSD: 102 T: 63 QT: 380 QTc: 452 Interpretive Statements Sinus rhythm Probable left atrial enlargement Low voltage, extremity leads Compared to ECG 03/07/2020 08:16:51 Low QRS voltage now present Electronically Signed On 03-08-2020 15:22:47 CDT by Virgilio Rosen [email or web address] <ELECTRONICALLY SIGNED> By: Virgilio Rosen MD, [facility] 03/08/20 1522 8 8 Virgilio Rosen MD, [facility] /EPI
[2020-03-08 16:30] VITALS: BP 159/103
[2020-03-08 20:00] VITALS: BP 135/70
[2020-03-09] VITALS (7 sets, daily range): BP systolic 91–161; BP diastolic 35–104
[2020-03-10] VITALS: BP 132/78
[2020-03-10 04:00] VITALS: BP 117/64
[2020-03-10 08:00] VITALS: BP 135/99
[2020-03-10 08:29] VITALS: BP 159/104
[2020-03-10] MEDS ORDERED: ELIQUIS5 MG PO (08:46)
[2020-03-10] MEDS ORDERED: SORINE 80 MG TA80 M1 PO (08:46)
== END 2020-03-10 12:45 | disposition home health service (06) | DRG 208 ==
LOC: M.ERS 02:55 → M.TBA-ER 06:24 → M.ICU 06:24 → M.2W 03-05 17:49
PROVIDERS: Family Medicine; Internal Medicine; Internal Medicine Critical Care Medicine; Internal Medicine Nephrology; Pediatrics; Personal Emergency Response Attendant; ADMIT Family Medicine; ATTEND Family Medicine
PROC: 0BH17EZ Insertion of Endotracheal Airway into Trachea, Via Natural or Artificial Opening (ICD-10-PCS; principal; 2020-03-01)
PROC: 02HV33Z Insertion of Infusion Device into Superior Vena Cava, Percutaneous Approach (ICD-10-PCS; 2020-03-01)
PROC: 0DJ08ZZ Inspection of Upper Intestinal Tract, Via Natural or Artificial Opening Endoscopic (ICD-10-PCS; 2020-03-01)
PROC: 5A1935Z Respiratory Ventilation, Less than 24 Consecutive Hours (ICD-10-PCS; 2020-03-01)
DX: J96.02 Acute respiratory failure with hypercapnia (principal); J69.0 Pneumonitis due to inhalation of food and vomit; G92 Toxic encephalopathy; E43 Unspecified severe protein-calorie malnutrition; J15.0 Pneumonia due to Klebsiella pneumoniae; I16.1 Hypertensive emergency; K92.0 Hematemesis; N17.9 Acute kidney failure, unspecified; E27.40 Unspecified adrenocortical insufficiency; F20.2 Catatonic schizophrenia; N39.0 Urinary tract infection, site not specified; F41.1 Generalized anxiety disorder; J45.909 Unspecified asthma, uncomplicated; F32.9 Major depressive disorder, single episode, unspecified; G89.29 Other chronic pain; M54.9 Dorsalgia, unspecified; Z96.659 Presence of unspecified artificial knee joint; G47.00 Insomnia, unspecified; E03.9 Hypothyroidism, unspecified; F11.90 Opioid use, unspecified, uncomplicated; I10 Essential (primary) hypertension; D64.9 Anemia, unspecified; E86.0 Dehydration; R33.9 Retention of urine, unspecified; I48.0 Paroxysmal atrial fibrillation; K76.0 Fatty (change of) liver, not elsewhere classified; Z20.828 Contact with and (suspected) exposure to other viral communicable diseases; E87.6 Hypokalemia; Z86.73 Personal history of transient ischemic attack (TIA), and cerebral infarction without residual deficits; Z87.11 Personal history of peptic ulcer disease; Z85.46 Personal history of malignant neoplasm of prostate; Z88.6 Allergy status to analgesic agent; Z88.8 Allergy status to other drugs, medicaments and biological substances; Z85.51 Personal history of malignant neoplasm of bladder; Z79.899 Other long term (current) drug therapy

== ENCOUNTER 2020-03-10 19:16 | Inpatient (IN) | payer MEDICARE, OTHER ==
[~2020-03-10] VITALS: Ht 185.4 cm; Wt 92.7 kg
[~2020-03-10 19:16] MED LIST changes: +ELIQUIS5 MG PO; +SORINE 80 MG TA80 M1 PO
[2020-03-10 19:23] VITALS: BP 79/44
[2020-03-10 19:49] LABS: HEMATOCRIT 31.6 % (42.0-52.0); MCHC 34.8 g/dL (28.0-37.0); MCV 83.5 fL (80.0-100.0); NUCLEATED RBCS 0 /100WBC; RBC 3.79 mil/uL (4.50-6.00); RDW-CV 13.5 % (10.5-14.5); WBC 8.7 thou/uL (4.0-11.0)
[2020-03-10 19:51] LABS: PLATELET COUNT* 225 thou/uL (150-400)
[2020-03-10 19:58] LABS: APTT 25.7 Seconds (25.0-31.3); INR 1.1; PROTIME 11.1 Seconds (9.20-11.50)
[2020-03-10 20:07] LABS: CALCIUM 7.3 mg/dL (8.5-10.1); CREATININE 1.7 mg/dL (0.6-1.3); POTASSIUM 4.3 mmol/L (3.5-5.1)
[2020-03-10 20:11] LABS: ALBUMIN 2.7 g/dL (3.4-5.0); TOTAL BILIRUBIN 0.1 mg/dL (<0.1-1.0); TOTAL PROTEIN 5.3 g/dL (6.4-8.2)
[2020-03-10 20:13] LABS: ABSOLUTE BASOPHILS 0.1 thou/uL (0.0-0.2); ABSOLUTE EOSINOPHILS 0.2 thou/uL (0.0-0.7); ABSOLUTE LYMPHOCYTES 1.7 thou/uL (0.8-5.3); ABSOLUTE MONOCYTES 0.4 thou/uL (0.0-1.2); ABSOLUTE NEUTROPHILS 6.3 thou/uL (1.6-8.1); ATYPICAL LYMPHS 7 %; METAMYELOCYTES 2 %; PLATELET ESTIMATE ADEQUATE
[2020-03-10 21:10] VITALS: BP 96/64
[2020-03-10 22:00] VITALS: BP 127/70; BP 96/55
[2020-03-11] VITALS: BP 96/55
[2020-03-11 01:48] LABS: ABSOLUTE EOSINOPHILS 0.2 thou/uL (0.0-0.7); ABSOLUTE LYMPHOCYTES 1.3 thou/uL (0.8-5.3); ABSOLUTE MONOCYTES 0.7 thou/uL (0.0-1.2); ABSOLUTE NEUTROPHILS 5.6 thou/uL (1.6-8.1); BASOPHILS 0.5 %; EOSINOPHILS 2.1 %; HEMATOCRIT 32.4 % (42.0-52.0); HEMOGLOBIN 11.1 gm/dL (14.0-18.0); LYMPHOCYTES 16.1 %; MCH 28.6 pg (26.0-34.0); MCHC 34.3 g/dL (28.0-37.0); MCV 83.5 fL (80.0-100.0); MONOCYTES 9.6 %; MPV 8.8 fl. (7.2-11.1); NUCLEATED RBCS 0 /100WBC; PLATELET COUNT* 197 thou/uL (150-400); POLYS 71.7 %; RBC 3.88 mil/uL (4.50-6.00); RDW-CV 13.7 % (10.5-14.5); WBC 7.8 thou/uL (4.0-11.0)
[2020-03-11 01:52] LABS: URINE BILIRUBIN NEGATIVE (Negative); URINE BLOOD NEGATIVE (Negative); URINE CLARITY CLEAR; URINE COLOR YELLOW; URINE GLUCOSE-RANDOM NEGATIVE (Negative); URINE KETONES NEGATIVE (Negative); URINE LEUKOCYTES-REFLEX NEGATIVE (Negative); URINE NITRITE-REFLEX NEGATIVE (Negative); URINE PROTEIN NEGATIVE (Negative); URINE UROBILINOGEN 0.2 E.U./dl (0.2-1.0)
[2020-03-11 01:54] LABS: CALCIUM 7.9 mg/dL (8.5-10.1); CREATININE 1.4 mg/dL (0.6-1.3); POTASSIUM 4.3 mmol/L (3.5-5.1)
[2020-03-11 01:59] LABS: AMP/METHAMP Negative (Negative); BARBITURATES Negative (Negative); BENZODIAZEPINES Negative (Negative); COCAINE Negative (Negative); METHADONE Negative (Negative); OPIATES Negative (Negative); PCP Negative (Negative); THC Negative (Negative)
[2020-03-11 04:32] VITALS: BP 118/69
[2020-03-11 08:00] VITALS: BP 102/75
[2020-03-11 12:00] VITALS: BP 120/74
[2020-03-11 15:50] VITALS: BP 116/70
[2020-03-11 20:00] VITALS: BP 145/80
[2020-03-12] VITALS: BP 152/85
[2020-03-12 04:00] VITALS: BP 163/94
[2020-03-12 04:55] LABS: CALCIUM 8.2 mg/dL (8.5-10.1); CREATININE 1.2 mg/dL (0.6-1.3); POTASSIUM 3.8 mmol/L (3.5-5.1)
[2020-03-12 04:58] LABS: ABSOLUTE EOSINOPHILS 0.2 thou/uL (0.0-0.7); ABSOLUTE LYMPHOCYTES 1.3 thou/uL (0.8-5.3); ABSOLUTE MONOCYTES 0.6 thou/uL (0.0-1.2); ABSOLUTE NEUTROPHILS 4.3 thou/uL (1.6-8.1); BASOPHILS 0.7 %; EOSINOPHILS 2.9 %; HEMATOCRIT 30.8 % (42.0-52.0); HEMOGLOBIN 10.9 gm/dL (14.0-18.0); LYMPHOCYTES 20.7 %; MCH 29.2 pg (26.0-34.0); MCHC 35.2 g/dL (28.0-37.0); MONOCYTES 8.7 %; MPV 9.4 fl. (7.2-11.1); NUCLEATED RBCS 0 /100WBC; PLATELET COUNT* 178 thou/uL (150-400); RBC 3.72 mil/uL (4.50-6.00); RDW-CV 13.6 % (10.5-14.5); WBC 6.4 thou/uL (4.0-11.0)
[2020-03-12 07:15] VITALS: BP 175/100
[2020-03-12 07:30] VITALS: BP 170/100
[2020-03-12 10:38] VITALS: BP 163/94
--- NOTE | 2020-03-14 10:41 | EKG ---
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: DARIEN : 1955 Requested By: Blair Noriega Order Number: [id number] MD: Kalyn West Measurements Intervals [place] Rate: 65 P: 38 LA: 173 QRS: -14 QRSD: 101 T: 70 QT: 480 QTc: 500 Interpretive Statements Sinus rhythm Inferior infarct, old Baseline wander in lead(s) II,III,aVF,V4 Compared to ECG 03/08/2020 08:19:31 Myocardial infarct finding now present Electronically Signed On 03-14-2020 10:41:02 CDT by Kalyn West [email or web address] <ELECTRONICALLY SIGNED> By: Kalyn West MD, [facility] 03/14/20 1041 26 26 Kalyn West MD, [facility] /EPI
== END 2020-03-12 12:45 | disposition home health service (06) | DRG 314 ==
LOC: M.ERS 19:16 → M.TBA-ER 20:25 → M.2W 20:25
PROVIDERS: Family Medicine; ADMIT Internal Medicine; ATTEND Internal Medicine
DX: I95.89 Other hypotension (principal); G93.41 Metabolic encephalopathy; N17.0 Acute kidney failure with tubular necrosis; K44.9 Diaphragmatic hernia without obstruction or gangrene; K27.9 Peptic ulcer, site unspecified, unspecified as acute or chronic, without hemorrhage or perforation; E03.9 Hypothyroidism, unspecified; F41.1 Generalized anxiety disorder; G89.29 Other chronic pain; M54.9 Dorsalgia, unspecified; G47.00 Insomnia, unspecified; I48.91 Unspecified atrial fibrillation; I10 Essential (primary) hypertension; T50.995A Adverse effect of other drugs, medicaments and biological substances, initial encounter; Z96.659 Presence of unspecified artificial knee joint; Z20.828 Contact with and (suspected) exposure to other viral communicable diseases; Z85.46 Personal history of malignant neoplasm of prostate; Z92.21 Personal history of antineoplastic chemotherapy; Z79.01 Long term (current) use of anticoagulants; Z79.899 Other long term (current) drug therapy; Z88.5 Allergy status to narcotic agent; Z88.8 Allergy status to other drugs, medicaments and biological substances; Z86.73 Personal history of transient ischemic attack (TIA), and cerebral infarction without residual deficits; Y92.89 Other specified places as the place of occurrence of the external cause

== ENCOUNTER 2021-03-09 02:57 | Inpatient (IN) | payer MEDICARE, OTHER ==
[~2021-03-09] VITALS: Ht 188 cm; Wt 119.3 kg
[2021-03-09 03:01] VITALS: BP 95/65
[2021-03-09 03:31] LABS: BE -7.9 mmol/L (-2 to +3); PCO2 24.9 mmHg (35.0-45.0); PO2 81.5 mmHg (75.0-100.0); pH 7.402 (7.340-7.450)
[2021-03-09 03:50] LABS: ABSOLUTE LYMPHOCYTES 0.4 thou/uL (0.8-5.3); ABSOLUTE MONOCYTES 0.2 thou/uL (0.0-1.2); ABSOLUTE NEUTROPHILS 3.4 thou/uL (1.6-8.1); BASOPHILS 0.3 %; EOSINOPHILS 0.5 %; HEMATOCRIT 37.5 % (42.0-52.0); HEMOGLOBIN 12.3 gm/dL (14.0-18.0); LYMPHOCYTES 10.2 %; MCH 28.4 pg (26.0-34.0); MCHC 32.8 g/dL (28.0-37.0); MCV 86.4 fL (80.0-100.0); MONOCYTES 5.7 %; MPV 9.3 fl. (7.2-11.1); NUCLEATED RBCS 0 /100WBC; PLATELET COUNT* 131 thou/uL (150-400); POLYS 83.3 %; RBC 4.34 mil/uL (4.50-6.00); RDW-CV 14.2 % (10.5-14.5); WBC 4.1 thou/uL (4.0-11.0)
[2021-03-09 03:58] LABS: URINE BILIRUBIN NEGATIVE (Negative); URINE BLOOD NEGATIVE (Negative); URINE CLARITY CLEAR; URINE COLOR YELLOW; URINE GLUCOSE-RANDOM NEGATIVE (Negative); URINE KETONES NEGATIVE (Negative); URINE LEUKOCYTES-REFLEX NEGATIVE (Negative); URINE NITRITE-REFLEX NEGATIVE (Negative); URINE PROTEIN 2+ (Negative); URINE SPECIFIC GRAVITY >= 1.030 (1.005-1.030); URINE UROBILINOGEN 0.2 E.U./dl (0.2-1.0)
[2021-03-09 04:01] LABS: CALCIUM 8.2 mg/dL (8.5-10.1); CREATININE 2.7 mg/dL (0.6-1.3); INR 1.1; POTASSIUM 4.8 mmol/L (3.5-5.1); PROTIME 11.6 Seconds (9.20-11.50)
[2021-03-09 04:06] LABS: AMP/METHAMP Negative (Negative); BARBITURATES Negative (Negative); BENZODIAZEPINES Negative (Negative); COCAINE Negative (Negative); METHADONE Negative (Negative); OPIATES Negative (Negative); PCP Negative (Negative); THC Negative (Negative)
[2021-03-09 04:11] LABS: ALBUMIN 4.2 g/dL (3.4-5.0); MAGNESIUM 3.1 mg/dL (1.8-2.4); TOTAL BILIRUBIN 0.3 mg/dL (<0.1-1.0); TOTAL PROTEIN 7.1 g/dL (6.4-8.2)
[2021-03-09 04:48] LABS: BACTERIA-REFLEX 1-9 Few /HPF (None Seen); CRYSTALS None Seen /LPF (None Seen); FINE GRANULAR CASTS 0-3 Few /LPF (None Seen); HYALINE CASTS 0-3 Few /LPF (None Seen); MUCUS 4-6 Moderate strn/LPF (None Seen); URINE RBC None Seen /HPF (0-2); URINE WBC-REFLEX None Seen /HPF (0-5)
[2021-03-09 04:53] LABS: SQUAMOUS 0-3 Few /LPF (0-3)
[2021-03-09 08:48] VITALS: BP 155/76
--- NOTE | 2021-03-09 08:51 | NUR ---
ATTEMPTED TO UPDATE PT'S DPOA, ANASTASIA, ON PT TRANSFER TO ROOM WITH NO ANSWER.
--- NOTE | 2021-03-09 09:27 | EKG ---
[place] [address] ELECTROCARDIOGRAM REPORT Name: KALYN SHAH Room: [place] [address] ADM IN .R.#: [id number] Admission: 03/09/21 Attend Phys: Esther Piña MD Discharge: Date of : 53 Date of Service: 03/09/21 0314 Report #: [id number] THIS REPORT FOR: //name// 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
[2021-03-09 11:48] LABS: CALCIUM 7.6 mg/dL (8.5-10.1); POTASSIUM 4.7 mmol/L (3.5-5.1)
[2021-03-09 11:49] LABS: CREATININE 1.7 mg/dL (0.6-1.3)
[2021-03-09 17:29] VITALS: BP 166/88
--- NOTE | 2021-03-09 19:35 | NUR ---
PT'S MEDS, MEALS HELD UNTIL SWALLOW STUDY AND PASSED, VSS, CALL LIGHT AND PERSONAL BELONGINGS PLACED WITHIN REACH. PT.IN STABLE CONDITION AT TIME OF SHIFT CHANGE.
[2021-03-09 19:45] VITALS: BP 170/90
[2021-03-10 00:32] VITALS: BP 166/94
--- NOTE | 2021-03-10 04:26 | NUR ---
PT ORIENTED TO HIMSELF ONLY. ON RA. PILLS GIVEN ONE AT A TIME. NEW IV INSERTED AND IVF INFUISING ORDERED. STEPHENSON IN PLACE DRAINING DARK YELLOW URINE. BED ALARM ON FOR SAFETY. WILL CONTINUE TO MONITOR.
[2021-03-10 04:28] VITALS: BP 161/92
[2021-03-10 04:32] LABS: HEMATOCRIT 34.4 % (42.0-52.0); HEMOGLOBIN 11.3 gm/dL (14.0-18.0); MCHC 32.8 g/dL (28.0-37.0); MCV 88.4 fL (80.0-100.0); RBC 3.9 mil/uL (4.50-6.00); RDW-CV 14.4 % (10.5-14.5)
[2021-03-10 05:03] LABS: ALBUMIN 3.7 g/dL (3.4-5.0); CREATININE 2.1 mg/dL (0.6-1.3); MAGNESIUM 2.8 mg/dL (1.8-2.4); TOTAL BILIRUBIN 0.3 mg/dL (<0.1-1.0); TOTAL PROTEIN 6.9 g/dL (6.4-8.2)
[2021-03-10 08:33] VITALS: BP 166/97
[2021-03-10 12:30] VITALS: BP 172/97
[2021-03-10 17:12] LABS: BE -5.6 mmol/L (-2 to +3); pH 7.538 (7.340-7.450)
[2021-03-10 17:19] LABS: PCO2 17.7 mmHg (35.0-45.0)
--- NOTE | 2021-03-10 17:51 | NUR ---
took pt off bipap due to dr. mcnair order. pt still breathing in the 60s heartrate of 86. Asked nurse about bicarb that needs to be given. Nurse stated that doctor never said anything about it.
--- NOTE | 2021-03-10 18:47 | NUR ---
PATIENT ORIENTED TO SELF THIS SHIFT, UNABLE TO ANSWER ANY OTHER QUESTIONS. PATIENT PLACED ON BIPAP THIS SHIFT DUE TO TACHYPNEA, THEN REMOVED DUE TO PCO2 OF 17.[address] HENDERSON. MEDICATIONS ADMINISTERED ORDERED. SPOKE WITH PATIENT'S DAUGHTER X2 DURING SHIFT TO GIVE UPDATES. CALL LIGHT AND FREQUENTLY USED ITEMS WITHIN REACH.
[2021-03-10 19:42] VITALS: BP 135/92
--- NOTE | 2021-03-11 00:05 | NUR ---
UPON ENTERING ROOM RIGHT AFTER GETTING SHIFT CHANGE REPORT PT WAS FOUND BY THIS RN/STERILE SUPERVISOR AND TECH. PT WAS CODED AND AFTER 35-45 MINS OF CODING PT. FAMILY WAS NOTIFIED. NOTIFIED, WHO WAS A PT IN ROOM 114 WITH COVID. TIME OF WAS AT 1946.
[2021-03-11 12:06] LABS: ANTI-DNA SCREEN 2 IU/mL (0-9); ANTI-RNP <0.2 AI (0.0-0.9); ANTI-SSA <0.2 AI (0.0-0.9); ANTIJO-I AB <0.2 AI (0.0-0.9)
== END 2021-03-10 19:46 | DRG 871 ==
LOC: M.ERS 02:57 → M.TBA-ER 04:29 → M.ORTHSURG 09:23
PROVIDERS: Emergency Medicine; Internal Medicine; Pediatrics; Psychiatry & Neurology Neurology; ADMIT Family Medicine; ATTEND Family Medicine
PROC: XW033E5 Introduction of Remdesivir Anti-infective into Peripheral Vein, Percutaneous Approach, New Technology Group 5 (ICD-10-PCS; principal; 2021-03-09)
DX: A41.89 Other specified sepsis (principal); U07.1 COVID-19; J96.01 Acute respiratory failure with hypoxia; J12.82 Pneumonia due to coronavirus disease 2019; N17.0 Acute kidney failure with tubular necrosis; G93.40 Encephalopathy, unspecified; G25.9 Extrapyramidal and movement disorder, unspecified; F20.2 Catatonic schizophrenia; E03.9 Hypothyroidism, unspecified; G89.29 Other chronic pain; M54.9 Dorsalgia, unspecified; J45.909 Unspecified asthma, uncomplicated; E86.0 Dehydration; F03.90 Unspecified dementia, unspecified severity, without behavioral disturbance, psychotic disturbance, mood disturbance, and anxiety; K58.9 Irritable bowel syndrome, unspecified; K27.9 Peptic ulcer, site unspecified, unspecified as acute or chronic, without hemorrhage or perforation; I48.91 Unspecified atrial fibrillation; Z88.6 Allergy status to analgesic agent; Z88.8 Allergy status to other drugs, medicaments and biological substances; Z79.899 Other long term (current) drug therapy; I46.9 Cardiac arrest, cause unspecified